=== PATIENT | male | born 1940 | race Caucasian/White ===

== ENCOUNTER → 2020-03-06 | Outpatient (CLI) | payer MEDICARE ==
--- NOTE | 2020-03-06 15:09 | XR ---
EXAMINATION TYPE: XR chest 2V DATE OF EXAM: 03/06/2020 CLINICAL HISTORY: Productive cough. History of CABG. TECHNIQUE: Frontal and lateral views of the chest are obtained. COMPARISON: None FINDINGS: Sternotomy wires and cardiac bypass graft markers consistent with history of CABG. The car diomediastinal silhouette is within normal limits for size. Pulmonary vasculature is normal. Multiple nonenlarged appearing bilateral hilar lymph nodes. Tiny round density over the right costophrenic an gle measuring 2 to 3 mm. There is no focal air space opacity, pleural effusion, or pneumothorax seen. Degenerative changes of the visualized spine. IMPRESSION: 1. No acute cardiopulmonary process. 2. Tiny 2 to 3 mm density over the right costophrenic angle may be related to granuloma, scarring, or overlying osseous/soft tissue structure. Consider repeat chest x-ray in 6 months for stability versu s resolution.
== END | disposition home or self-care (01) ==
LOC: RADXRMAIN 10:25
PROVIDERS: ATTEND Internal Medicine Geriatric Medicine
DX: R91.8 Other nonspecific abnormal finding of lung field (principal); R05 Cough
CPT/HCPCS: 71046

== ENCOUNTER → 2021-01-30 | Outpatient (CLI) | payer MEDICARE ==
--- NOTE | 2021-01-30 15:36 | XR ---
Bilateral hips HISTORY: 25.552 2 views of each hip There are dense vascular calcifications noted. Bone mineralization, joint spaces and alignment are ma intained on the right. No fracture or dislocation. The left hip shows joint space loss, subchondral geode formation and eburnation. There is mild margin al spurring. IMPRESSION: Osteoarthritis left hip.
== END | disposition home or self-care (01) ==
LOC: RADXRMAIN 11:12
PROVIDERS: ATTEND Internal Medicine Geriatric Medicine
DX: M16.12 Unilateral primary osteoarthritis, left hip (principal)
CPT/HCPCS: 73521

== ENCOUNTER 2021-08-05 12:53 | Emergency (ER) | payer MEDICARE ==
[2021-08-05 12:58] VITALS: RESP 18; TEMP 97.6
--- NOTE | 2021-08-05 13:29 | ED ---
General Adult HPI - General Chief complaint: Chest Pain Stated complaint: chest pain Time Seen by Provider: 08/05/21 13:02 Source: patient Mode of arrival: wheelchair Limitations: no limitations - History of Present Illness Initial comments: Dictation was produced using [employer] dictation software. please excuse any grammatical, word or spelling errors. Chief Complaint: 80-year-old male presents with abdominal pain History of Present Illness: Patient is a 80-year-old male. He has past medical history of heart attacks hypertension. Patient states that over the last 3-4 days he's been having right upper quadrant and right lower chest pain. States that it feels like a ache worse when he moves especially when he tries to sit up. Patient denies any nausea and one bout of diarrhea yesterday. No coughing. No fevers. No shortness of breath. He was sent here to the emergency department by primary care physician. He points to his right upper quadrant of his abdomen below the rib margin when asked where. States it does feel worse when he takes a deep breath. The ROS documented in this emergency department record has been reviewed and confirmed by me. Those systems with pertinent positive or negative responses have been documented in the HPI. All other systems are other negative and/or noncontributory. PHYSICAL EXAM: General Impression: Alert and oriented x3, not in acute distress HEENT: Normocephalic atraumatic, extra-ocular movements intact, pupils equal and reactive to light bilaterally, mucous membranes moist. Cardiovascular: Heart regular rate and rhythm Chest: Able to complete full sentences, no retractions, no tachypnea Abdomen: abdomen soft, non-tender, non-distended, no organomegaly Musculoskeletal: Pulses present and equal in all extremities, no peripheral edema Motor: no focal deficits noted Neurological: CN II-XII grossly intact, no focal motor or sensory deficits noted Skin: Intact with no visualized rashes Psych: Normal affect and mood ED course: 80-year-old male presents to the emergency department with right upper quadrant abdominal pain. Vital signs upon arrival shows blood pressure to 201/90 cumbersome vital signs within acceptable limits. Patient's pain is pleuritic and positional in nature. He is well-appearing at the bedside. His history of cholecystectomy. CBC unremarkable. Metabolic panel is negative. Troponins negative. Repeat vital signs are normal. Patient's symptoms are very atypical. Does not have any other associated features to cause concern for acute coronary syndrome. Patient be discharged. Reevaluated at bedside at 4:30 PM found to be in stable medical condition. His asymptomatic. EKG interpretation: Ventricular rate 71, normal sinus rhythm,. Interval 154, QRS 100, QTC 467. No [place] prolongation, no QTC prolongation, no ST or T-wave abelardo nges noted. No old EKG for comparison. Overall this EKG is unremarkable. - Related Data Home Medications Medication Instructions Recorded Confirmed Acetaminophen/Diphenhydramine 2 tab PO HS 08/05/21 08/05/21 [Tylenol PM 500-25mg] Amlodipine Besylate/Valsartan 1 tab PO DAILY 08/05/21 08/05/21 [Amlodipine-Valsartan 5-160 mg] Aspirin EC [Ecotrin Low Dose] 81 mg PO HS 08/05/21 08/05/21 Baclofen [Lioresal] 5 mg PO TID 08/05/21 08/05/21 Carbidopa-Levodopa 25-100 mg 0.5 tab PO DAILY 08/05/21 08/05/21 [Sinemet 25-100] Carbidopa-Levodopa 25-100 mg 1 tab PO HS 08/05/21 08/05/21 [Sinemet 25-100] Cholecalciferol [Vitamin D3 (25 50 mcg PO DAILY 08/05/21 08/05/21 Mcg = 1000 Iu)] Dicyclomine [Bentyl] 20 mg PO HS 08/05/21 08/05/21 Finasteride [Proscar] 5 mg PO DAILY 08/05/21 08/05/21 Meclizine [Antivert] 25 mg PO DAILY PRN 08/05/21 08/05/21 Meloxicam [Mobic] 7.5 mg PO BID 08/05/21 08/05/21 Metoprolol Succinate (ER) [Toprol 25 mg PO HS 08/05/21 08/05/21 Xl] Nitroglycerin Sl Tabs [Nitrostat] 0.4 mg SUBLINGUAL Q5M PRN 08/05/21 08/05/21 Pantoprazole [Protonix] 40 mg PO HS 08/05/21 08/05/21 Rosuvastatin [Crestor] 10 mg PO DAILY 12/29/21 12/29/21 Tamsulosin HCl [Flomax] 0.4 mg PO BID 08/05/21 08/05/21 Zinc 50 mg PO DAILY 08/05/21 08/05/21 Allergies Allergy/AdvReac Type Severity Reaction Status Date / Time No Known Allergies Allergy Verified 08/05/21 15:29 Review of Systems ROS Statement: Those systems with pertinent positive or pertinent negative responses have been documented in the HPI. ROS Other: All systems not noted in ROS Statement are negative. Past Medical History Past Medical History: Hypertension, Myocardial Infarction (NH) History of Any Multi-Drug Resistant Organisms: None Reported Past Surgical History: Coronary Bypass/CABG, Heart Catheterization With Stent Past Psychological History: No Psychological Hx Reported Smoking Status: Never smoker Past Alcohol Use History: None Reported Past Drug Use History: None Reported General Exam Limitations: no limitations Course Vital Signs 08/05/21 08/05/21 08/05/21 12:55 13:05 14:00 Temperature 97.6 F Pulse Rate 67 77 Pulse Rate [ 68 [employer] ] Respiratory 18 18 Rate Blood Pressure 201/90 169/77 O2 Sat by Pulse 97 Oximetry 08/05/21 15:56 Temperature Pulse Rate 61 Pulse Rate [ [employer] ] Respiratory 18 Rate Blood Pressure 153/74 O2 Sat by Pulse Oximetry Medical Decision Making - Lab Data Result diagrams: 08/05/21 13:28 08/05/21 14:58 Lab Results 08/05/21 08/05/21 08/05/21 Range/Units 13:28 14:58 14:58 WBC 5.1 (3.8-10.6) k/uL RBC 5.50 (4.30-5.90) m/uL Hgb 16.7 (13.0-17.5) gm/dL Hct 52.2 (39.0-53.0) % MCV 94.9 (80.0-100.0) fL MCH 30.3 (25.0-35.0) pg MCHC 32.0 (31.0-37.0) g/dL RDW 12.8 (11.5-15.5) % Plt Count 181 (150-450) k/uL MPV 9.1 Neutrophils % 54 % Lymphocytes % 29 % Monocytes % 7 % Eosinophils % 7 % Basophils % 1 % Neutrophils # 2.7 (1.3-7.7) k/uL Lymphocytes # 1.5 (1.0-4.8) k/uL Monocytes # 0.4 (0-1.0) k/uL Eosinophils # 0.3 (0-0.7) k/uL Basophils # 0.0 (0-0.2) k/uL Sodium 137 (137-145) mmol/L Potassium 5.1 (3.5-5.1) mmol/L Chloride 102 (98-107) mmol/L Carbon Dioxide 26 (22-30) mmol/L Anion Gap 9 mmol/L BUN 20 (9-20) mg/dL Creatinine 1.04 (0.66-1.25) mg/dL Est GFR (CKD-EPI)AfAm 78 (>60 ml/min/1.73 sqM) Est GFR (CKD-EPI)NonAf 67 (>60 ml/min/1.73 sqM) Glucose 112 H (74-99) mg/dL Calcium 9.3 (8.4-10.2) mg/dL Magnesium 2.1 (1.6-2.3) mg/dL Total Bilirubin 0.6 (0.2-1.3) mg/dL AST 34 (17-59) U/L ALT 8 (4-49) U/L Alkaline Phosphatase 75 (38-126) U/L Troponin I <0.012 (0.000-0.034) ng/mL Total Protein 7.1 (6.3-8.2) g/dL Albumin 4.3 (3.5-5.0) g/dL Lipase 55 (23-300) U/L Disposition Clinical Impression: Abdominal wall strain Disposition: HOME SELF-CARE Condition: Good Instructions (If sedation given, give patient instructions): Abdominal Pain (ED), Chest Pain (ED) Is patient prescribed a controlled substance at d/c from ED?: No Referrals: Darian Benavides MD [Primary Care Provider] - 1-2 days
[2021-08-05 13:46] LABS: Basophils % (A) 1 %; Eosinophils # (A) 0.3 k/uL (0-0.7); Eosinophils % (A) 7 %; HCT 52.2 % (39.0-53.0); HGB 16.7 gm/dL (13.0-17.5); Lymphocytes # (A) 1.5 k/uL (1.0-4.8); Lymphocytes % (A) 29 %; MCH 30.3 pg (25.0-35.0); MCV 94.9 fL (80.0-100.0); Mean Platelet Volume 9.1; Monocytes # (A) 0.4 k/uL (0-1.0); Monocytes % (A) 7 %; Neutrophils # (A) 2.7 k/uL (1.3-7.7); Neutrophils % (A) 54 %; Platelet Count 181 k/uL (150-450); RDW 12.8 % (11.5-15.5); WBC 5.1 k/uL (3.8-10.6)
--- NOTE | 2021-08-05 14:09 | XR ---
EXAMINATION TYPE: XR abdomen acute w cxr DATE OF EXAM: 08/05/2021 COMPARISON: NONE HISTORY: abdominal pain TECHNIQUE: Supine, upright, and left side down lateral decubitus views of the abdomen are obtained. FINDINGS: There is bilateral areas of infiltrate and heart size is normal. Postoperative changes. No pneumothorax. Arthropathy of the hips greater on the left. Calcification the pelvis likely vascular. Right-sided intra-abdominal calcification nonspecific. No diagnostic evidence of bowel obstruction. IMPRESSION: 1. Nonspecific abdomen with no obstruction. 2. Bilateral lower lobe infiltrate.
[2021-08-05 15:51] LABS: Albumin 4.3 g/dL (3.5-5.0); Calcium 9.3 mg/dL (8.4-10.2); Total Bilirubin 0.6 mg/dL (0.2-1.3); Total Protein 7.1 g/dL (6.3-8.2)
[2021-08-05 15:52] LABS: Magnesium 2.1 mg/dL (1.6-2.3); Potassium 5.1 mmol/L (3.5-5.1)
[2021-08-05 17:01] VITALS: BP 144/78; PULSE 57
== END 2021-08-05 17:08 | disposition home or self-care (01) ==
LOC: EC 12:53
DX: S39.011A Strain of muscle, fascia and tendon of abdomen, initial encounter (principal); I10 Essential (primary) hypertension; I25.2 Old myocardial infarction; Z79.82 Long term (current) use of aspirin; Z95.1 Presence of aortocoronary bypass graft; X58.XXXA Exposure to other specified factors, initial encounter
CPT/HCPCS: 36415; 74022; 80053; 83690; 83735; 84484; 85025; 93005; 99285

== ENCOUNTER → 2022-10-20 | Outpatient (CLI) | payer MEDICARE ==
--- NOTE | 2022-10-21 10:33 | NM ---
EXAMINATION TYPE: NM DatScan Brain SPECT DATE OF EXAM: 10/20/2022 COMPARISON: NONE HISTORY: Tremors TECHNIQUE: 10 drops of Lugol's solution was administered 1 hour prior to injection as a thyroid bloc emiliano agent. After the administration of 4.53 mCi I-123 Ioflupane DaTscan. Images obtained 3 hours p ost injection. SPECT images of the brain were acquired with axial and coronal reconstructions. FINDINGS: The axial SPECT images demonstrate normal background activity. Accounting for head tilt, t here appears to be symmetric uptake within the bilateral corpus striatum. The Z score within the striatum, caudate, anterior putamen, and posterior putamen bilaterally are wit hin normal limits. IMPRESSION: 1. Normal exam.
== END | disposition home or self-care (01) ==
LOC: RADNMMAIN 10:25
PROVIDERS: ATTEND Internal Medicine Geriatric Medicine
DX: G20 Parkinson's disease (principal)
CPT/HCPCS: 78803; A9584

== ENCOUNTER → 2023-01-13 | Outpatient (CLI) | payer MEDICARE ==
--- NOTE | 2023-01-13 14:36 | MR ---
EXAMINATION TYPE: MR brain wo/w con DATE OF EXAM: 01/13/2023 COMPARISON: No direct comparisons HISTORY: Shaking of the right hand, no reinforcing steel erector strength. TECHNIQUE: Multiplanar, multisequence images of the brain and brainstem is performed without and with IV contras t, utilizing 9.5 mL intravenous Gadavist . FINDINGS: Diffusion weighted images demonstrate no evidence of a recent infarct or other diffusion ab normality. There is no extra-axial fluid collection. Several periventricular and subcortical white m atter T2/FLAIR hyperintense foci. Largest is within the periventricular location on the right fronta l lobe measuring up to 1.4 cm (series 501, image 21). The ventricular system and cisternal spaces are normal in size and appearance. Age-appropriate cerebral volume loss. Midline structures demonstrate normal morphology. The craniocervical junction appears within normal limits. Post contrast images demonstrate no abnormal enhancement. The dural venous sinuses appear pa tent. Moderate mucosal thickening of the right frontal sinus. The remaining visualized sinuses are cl ear and the globes are intact. IMPRESSION: 1. No evidence of intracranial mass, acute/subacute infarct, or abnormal enhancement. 2. Nonspecific white matter changes, likely related to small vessel ischemic disease
== END | disposition home or self-care (01) ==
LOC: RADMRIMAIN 12:37
PROVIDERS: ATTEND Psychiatry & Neurology Neurology
DX: R90.82 White matter disease, unspecified (principal); R27.0 Ataxia, unspecified
CPT/HCPCS: 70553; A9585

== ENCOUNTER → 2023-02-03 | Outpatient (CLI) | payer MEDICARE ==
--- NOTE | 2023-02-04 08:35 | MR ---
MRI CERVICAL SPINE: CLINICAL HISTORY: Shaking of right hand, sometimes dropping things, myelopathy right finger pain and numbness. TECHNIQUE: Multiplanar, multisequence imaging of the cervical spine is performed without IV contrast. COMPARISON: None. FINDINGS: Coronal images show levoconvex scoliotic curvature centered in the lower cervical spine. Sa gittal images of the cervical spine show the craniocervical junction to appear within normal limits. The cervical and upper thoracic spinal cord is normal in course, caliber, and signal. The vertebral body heights are normal. Moderate disc space narrowing with mild to moderate anterior spurring at C4- C5 level. Moderate to severe disc space narrowing with heterogeneous Modic type II endplate changes a t C5-C6 level. Sikxqcxo-[id number]-hcghhs disc space narrowing and moderate anterior spurring at C6-C7 level. Slight subtle grade 1 anterolisthesis C7 on T1. Axial images show C2-C3 level to appear within normal limits. Axial images at C3-C4 level showed broad based posterior disc protrusion effacing anterior thecal sac and uncovertebral facet degenerative changes causing mild left and moderate to severe right-sided ne ural foraminal narrowing. Axial images at C4-C5 level shows broad-based right paracentral disc protrusion effacing anterior the kristel sac with right foraminal component causing moderate right-sided neural foraminal narrowing. Axial images at C5-C6 level show posterior spur disc complex effacing anterior thecal sac and causing mild right and [id number]-yw-caughhkh left-sided neural foraminal narrowing. Axial images at C6-C7 level shows a focal central disc protrusion effacing anterior thecal sac with a symmetric mild left-sided neural foraminal narrowing. Axial images at C7-T1 level appear within normal limits. 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
== END | disposition home or self-care (01) ==
LOC: RADMRIMAIN 15:14
PROVIDERS: ATTEND Psychiatry & Neurology Neurology
DX: M47.12 Other spondylosis with myelopathy, cervical region (principal); R53.1 Weakness; R27.9 Unspecified lack of coordination
CPT/HCPCS: 72141

== ENCOUNTER 2023-10-18 06:52 | Day surgery (SDC) | payer MEDICARE ==
[2023-10-18] MEDS ORDERED: HEPARIN SODIUM,PORCINE (1 ML) 2,500 UNIT in SODIUM CHLORIDE 0.9% 250 ML IRRIGATION PRN (07:38)
[2023-10-18] MEDS ORDERED: ASPIRIN 325 MG TAB PO STA (07:38)
[2023-10-18] MEDS ORDERED: HEPARIN SODIUM,PORCINE 10,000 UNIT in SODIUM CHLORIDE 0.9% 1,000 ML IRRIGATION PRN (07:38)
[2023-10-18] MEDS ORDERED: ALPRAZolam 0.25 MG TAB PO PRN (07:38)
[2023-10-18] MEDS ORDERED: NITROGLYCERIN SL TABS 0.4 MG TAB SUBLINGUAL PRN (07:38)
[2023-10-18] MEDS: SODIUM CHLORIDE 0.9% 1,000 ML in EMPTY BAG 1 BAG IV SCH (07:44)
[2023-10-18] MEDS: ALPRAZolam 0.5 MG TAB PO PRN (07:51)
[2023-10-18 08:09] VITALS: RESP 18; TEMP 97.8
[2023-10-18] MEDS ORDERED: HEPARIN SODIUM 1,000 UN/ML (10ML VL) ONE (09:12)
[2023-10-18] MEDS ORDERED: fentaNYL (PF) 50 MCG/ML 2 ML AMP ONE (09:13)
[2023-10-18] MEDS: fentaNYL (PF) 50 MCG/ML 2 ML AMP IVP ONE (09:30)
[2023-10-18] MEDS: LIDOCAINE 1% INJ 10MG/ML (30 ML VIAL-PF) SQ ONE (09:31)
[2023-10-18] MEDS: VERAPAMIL SYRINGE (5 MG/10 ML) INTRAARTER ONE (09:32)
[2023-10-18] MEDS: HEPARIN SODIUM 1,000 UN/ML (10ML VL) IV ONE (09:45)
[2023-10-18] MEDS: IOPAMIDOL-370 100ML BTL INJ ONE ×2 (09:55→10:03)
[2023-10-18] MEDS ORDERED: RX INFO: IV CONTRAST WAS GIVEN 1 EACH MISC MISCELLANE PRN (10:18)
[2023-10-18] MEDS ORDERED: SODIUM CHLORIDE 0.9% 1,000 ML IV SCH (10:30)
--- NOTE | 2023-10-18 10:35 | P.CARDCATH ---
Date of Procedure: 10/18/23 Description of Procedure: Cardiac Catheterization: The patient is an 82-year-old male with a known history of prior bypass and stenting who has been complaining of progressive fatigue. Had an abnormal MPI. Recommendations were made regarding cardiac catheterization, the risks and the complications were discussed with the patient who is in full understanding and agreement. Procedure Description: Patient was brought to slab inspector in fasting semi-sedated state after receiving Fentanyl and Benadryl achieiving moderate conscious sedated state. Using Xylocaine Anesthesia and modified Seldinger technique, a 6-[place]e sheath was introduced in the left radial artery . Subsequently, selective coronary angiography was performed using a 5-[place]e 4 bend Slime catheter. Multiple views of the coronary artery including hemiaxial views were obtained. Images of the saphenous vein graft to the OM were obtained with the right Slime as well images of the SAAVEDRA. The saphenous vein graft to the diagonal was cannulated using a 6 [place]e left coronary bypass catheter. The 5 [place]e pigtail catheter was used to cross the aortic valve and LVEDP was calculated. Following that, catheter and sheath were removed. Hemostasis was obtained with deployment of vascular band . There was no immediate complication. Patient was returned to room in stable condition. Of note, the patient received a total of 5000 units of intravenous heparin as well as intra-arterial verapamil. Findings: Fluoroscopy: Significant calcification of the ostium of the RCA was noted. Left main: This is a calcified vessel diffusely disease with a area of stenosis up to 70% bifurcating into left circumflex and LAD LAD: This vessel is diffusely diseased throughout its course, the proximal and mid segment have area of stenosis up to 80%. Competitive flow from the SAAVEDRA was noted in the mid LAD. A first diagonal branch was noted with diffuse intimal disease proximally Left circumflex: This vessel is totally occluded proximally with no antegrade flow RCA: This is a dominant vessel heavily calcified bifurcating distally to PDA and PLV. The proximal right coronary artery in the ostium is heavily calcified with a area of stenosis 40 to 50% the mid segment proximal to the stent has an area of stenosis of 70% diffuse intimal disease in the distal vessel was noted. The PDA and PLV are small in caliber and diffusely diseased. SAAVEDRA to the LAD the distal anastomotic site is patent the flow in the LAD is brisk there is no evidence of obstructive disease Saphenous vein graft to the OM: The proximal and distal anastomotic site are patent the flow into the OM is brisk and there is back feeding to the first OM. There is a 20 to 30% stenosis in the proximal body of the graft. Saphenous vein graft to the diagonal branch: The proximal and distal anastomotic site are patent the flow in the diagonal branch is brisk. The diagonal branch is small in caliber and diffusely diseased. Left Ventriculogram: Not performed Hemodynamics: There was no gradient across the aortic valve, LVEDP was 12-14 mmHg Conclusion: 1. Calcified coronary arteries 2. Chronically occluded left circumflex 3. 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 Diffuse disease with severe disease in the proximal and mid LAD 5. Patent SAAVEDRA to the LAD 6. Patent SVG to the OM and to the diagonal branch Recommendations: I have recommended to continue medical therapy. His stress test correlates with his diffusely disease RCA. If he has persistent symptoms then attempt of stenting of the RCA can be done. The findings and the recommendations were discussed with the patient and the family and they were in full understanding and agreement. Duration of sedation is 33 minutes.
[2023-10-18 15:22] VITALS: BP 148/67; PULSE 56
[2023-10-18] MEDS ORDERED: ASPIRIN 81 MG PO SCH (21:00)
[2023-10-19] MEDS ORDERED: amLODIPine 5 MG TAB PO SCH (09:00)
[2023-10-19] MEDS ORDERED: ATORVASTATIN 20 MG TAB PO SCH (09:00)
[2023-10-19] MEDS ORDERED: PROPRANOLOL 20 MG TAB PO SCH (09:00)
[2023-10-19] MEDS ORDERED: VALSARTAN 160 MG TAB PO SCH (09:00)
== END 2023-10-18 15:15 | disposition home or self-care (01) ==
LOC: CATHCVL 06:52
PROVIDERS: ATTEND Internal Medicine Interventional Cardiology
DX: I25.10 Atherosclerotic heart disease of native coronary artery without angina pectoris (principal); I10 Essential (primary) hypertension; E78.5 Hyperlipidemia, unspecified; Z82.49 Family history of ischemic heart disease and other diseases of the circulatory system; Z79.82 Long term (current) use of aspirin; Z79.899 Other long term (current) drug therapy
CPT/HCPCS: 93459; C1769 ×3; C1894; J2001; J3010; J1644; Q9967

== ENCOUNTER → 2023-12-15 | Outpatient (CLI) | payer MEDICARE ==
[2023-12-16 02:05] LABS: ALT 18 U/L (10-49); AST 23 U/L (14-35); Albumin 4.7 g/dL (3.8-4.9); Albumin/Globulin Ratio 1.96 Ratio (1.60-3.17); Alkaline Phosphatase 96 U/L (41-126); BUN/Creat Ratio 16.75 Ratio (12.00-20.00); Blood Urea Nitrogen 20.1 mg/dL (9.0-27.0); Calcium 9.6 mg/dL (8.7-10.3); Carbon Dioxide 26.6 mmol/L (21.6-31.8); Chloride 105 mmol/L (96-109); Globulin 2.4 g/dL (1.6-3.3); Glucose 106 mg/dL (70-110); Potassium 4.3 mmol/L (3.5-5.5); Sodium 143 mmol/L (135-145); Total Bilirubin 0.4 mg/dL (0.3-1.2); Total Protein 7.1 g/dL (6.2-8.2)
[2023-12-16 02:28] LABS: NT-Pro-B-Type Natriuretic Pept 374 pg/mL (0-450)
== END | disposition home or self-care (01) ==
LOC: LABWHC1 13:39
PROVIDERS: ATTEND Internal Medicine Interventional Cardiology
DX: I25.5 Ischemic cardiomyopathy (principal)
CPT/HCPCS: 36415; 80053; 83880

== ENCOUNTER 2024-02-21 05:04 | Observation (INO) | payer MEDICARE ==
[2024-02-21 05:53] LABS: ALT 19 U/L (4-49); African American GFR (CKD) 83 (>60 ml/min/1.73 sqM); Albumin 4.4 g/dL (3.5-5.0); Anion Gap 10 mmol/L; Blood Urea Nitrogen 24 mg/dL (9-20); Calcium 8.8 mg/dL (8.4-10.2); Carbon Dioxide 20 mmol/L (22-30); Chloride 111 mmol/L (98-107); Glucose 106 mg/dL (74-99); Non-African American GFR(CKD) 72 (>60 ml/min/1.73 sqM); Sodium 141 mmol/L (137-145); Total Bilirubin 0.9 mg/dL (0.2-1.3); Total Protein 6.8 g/dL (6.3-8.2)
[2024-02-21] MEDS: SODIUM CHLORIDE 0.9% 500 ML 500 ML IV STA (05:56)
[2024-02-21] MEDS: NITROGLYCERIN OINT 1 INCH/GM PACKET TOPICAL STA (05:57)
[2024-02-21 06:01] LABS: AST 32 U/L (17-59); Alkaline Phosphatase 74 U/L (38-126); Magnesium 1.9 mg/dL (1.6-2.3); Potassium 4.6 mmol/L (3.5-5.1)
[2024-02-21 06:02] LABS: NT-Pro-B-Type Natriuretic Pept 421 pg/mL
[2024-02-21 06:13] LABS: Basophils % (A) 0 %; Eosinophils # (A) 0.1 k/uL (0-0.7); Eosinophils % (A) 3 %; HCT 48.3 % (39.0-53.0); HGB 15.5 gm/dL (13.0-17.5); Lymphocytes # (A) 0.3 k/uL (1.0-4.8); Lymphocytes % (A) 6 %; MCH 30.8 pg (25.0-35.0); Mean Platelet Volume 8.4; Monocytes # (A) 0.1 k/uL (0-1.0); Monocytes % (A) 2 %; Neutrophils # (A) 3.9 k/uL (1.3-7.7); Neutrophils % (A) 89 %; Platelet Count 135 k/uL (150-450); RBC 5.03 m/uL (4.30-5.90); RDW 13.1 % (11.5-15.5); WBC 4.4 k/uL (3.8-10.6)
[2024-02-21] MEDS ORDERED: NALOXONE 0.4 MG/ML 1 ML VIAL IV PRN (06:40)
--- NOTE | 2024-02-21 06:42 | ED ---
General Adult HPI - General Chief complaint: Chest Pain Stated complaint: Chest Pain Time Seen by Provider: 02/21/24 05:20 Source: patient, EMS, RN notes reviewed, old records reviewed Mode of arrival: EMS - History of Present Illness Initial comments: Patient is a 83-year-old male who presents emergency department complaining of chest pain. Chest pain started at approximately 3-330 this morning and woke him from sleep. Describes his pain over the left side of his chest with some left arm involvement. Denies any diaphoresis, nausea, vomiting. Denies shortness of breath. States he took 325 mg of aspirin as well as 1 or 2 nitro tablets at home which improved pain from a 5 out of 10 to approximately 1 out of 10 which is where he currently stands. Has no other acute complaints. Presents for further evaluation at this time. - Related Data Home Medications Medication Instructions Recorded Confirmed Acetaminophen/Diphenhydramine 2 tab PO HS 08/05/21 10/18/23 [Tylenol PM 500-25mg] Amlodipine Besylate/Valsartan 1 tab PO DAILY 08/05/21 10/18/23 [Amlodipine-Valsartan 5-160 mg] Aspirin EC [Ecotrin Low Dose] 81 mg PO HS 08/05/21 10/18/23 Baclofen [Lioresal] 10 mg PO BID 08/05/21 10/18/23 Cholecalciferol [Vitamin D3 (25 50 mcg PO DAILY 08/05/21 10/18/23 Mcg = 1000 Iu)] Dicyclomine [Bentyl] 20 mg PO BID 08/05/21 10/18/23 Finasteride [Proscar] 5 mg PO DAILY 08/05/21 10/18/23 Meloxicam [Mobic] 7.5 mg PO BID 08/05/21 10/18/23 Nitroglycerin Sl Tabs [Nitrostat] 0.4 mg SUBLINGUAL Q5M PRN 08/05/21 10/18/23 Pantoprazole [Protonix] 40 mg PO HS 08/05/21 10/18/23 Rosuvastatin [Crestor] 10 mg PO DAILY 08/05/21 10/18/23 Tamsulosin HCl [Flomax] 0.4 mg PO BID 08/05/21 10/18/23 Zinc 50 mg PO DAILY 08/05/21 10/18/23 DULoxetine HCL [Cymbalta] 20 mg PO HS 10/12/23 10/18/23 Propranolol HCl [Inderal] 60 mg PO DAILY 10/12/23 10/18/23 Allergies Allergy/AdvReac Type Severity Reaction Status Date / Time No Known Allergies Allergy Verified 10/18/23 07:38 Review of Systems ROS Statement: Those systems with pertinent positive or pertinent negative responses have been documented in the HPI. Review of Systems: CONST: Denies fever EYES: Denies blurry vision ENT: Denies nasal congestion C/V: Endorses chest pain RESP: Denies shortness of breath GI: Denies abdominal pain : Denies dysuria SKIN: Denies rash. MSK: Denies joint pain. NEURO: Denies headache ROS Other: All systems not noted in ROS Statement are negative. Past Medical History Past Medical History: GERD/Reflux, Hyperlipidemia, Hypertension, Myocardial Infarction ([place]), Prostate Disorder Last Myocardial Infarction Date:: 2006, History of Any Multi-Drug Resistant Organisms: None Reported Past Surgical History: Cholecystectomy, Coronary Bypass/CABG, Heart Catheterization With Stent Additional Past Surgical History / Comment(s): 2009 cabg 3x vessel Past Anesthesia/Blood Transfusion Reactions: No Reported Reaction Date of Last Stent Placement:: 2015 Past Psychological History: Anxiety Smoking Status: Never smoker - Past Family History Brother(s) Family Medical History: Cancer Additional Family Medical History / Comment(s): leukemia, lung General Exam - General Exam Comments Initial Comments: General: Appears in no acute distress. HEAD: Normal with no signs of head trauma. EYES: PERRLA, EOMI, conjunctiva normal, no discharge. ENT: Hearing grossly intact, normal oropharynx. RESPIRATORY: Clear breath sounds bilaterally. No wheezes, rales, or rhonchi. C/V: Regular rate and rhythm. S1 and S2 auscultated, no edema, peripheral pulses 2+ and intact throughout ABD: Abd is soft, nontender, nondistended EXT: Normal range of motion, no obvious deformity SKIN: No rashes or lesions observed on exposed skin. NEURO: Alert and oriented x 4. Cranial nerves II-XII intact. No focal sensory or strength deficits. Course Vital Signs 02/21/24 02/21/24 05:09 05:57 Temperature 98.2 F Pulse Rate 88 75 Respiratory 20 17 Rate Blood Pressure 167/82 151/82 O2 Sat by Pulse 95 95 Oximetry Medical Decision Making - Medical Decision Making Was pt. sent in by a medical professional or institution (, PINKY, TOOL MAINTENANCE TECHNICIAN, urgent care, hospital, or assisted...) When possible be specific @ -No Did you speak to anyone other than the patient for history (EMS, parent, family, police, friend...)? What history was obtained from this source @ -No Did you review nursing and triage notes (agree or disagree)? Why? @ -I reviewed and agree with nursing and triage notes Were old charts reviewed (outside hosp., previous admission, EMS record, old EKG, old radiological studies, urgent care reports/EKG's, assisted records)? Report findings @ -Old charts reviewed including prior EKGs. Compared with EKG from July 2021 with no obvious significant change. Differential Diagnosis (chest pain, altered mental status, abdominal pain women, abdominal pain men, vaginal bleeding, weakness, fever, dyspnea, syncope, headache, dizziness, GI bleed, back pain, seizure, CVA, palpatations, mental health, musculoskeletal)? @ -Differential Chest Pain: Stable Angina, Unstable Angina, STEMI, NSTEMI Aortic Dissection, Pneumothorax, Musculoskeletal, Esophageal Spasm GERD, Cholecystitis, Pancreatitis, Zoster, this is not meant to be an all-inclusive list. EKG interpreted by me (3pts min.). @ -As above X-rays interpreted by me (1pt min.). @ -Chest x-ray reveals no obvious acute cardiopulmonary process. CT interpreted by me (1pt min.). @ -None done U/S interpreted by me (1pt. min.). @ -None done What testing was considered but not performed or refused? (CT, X-rays, U/S, labs)? Why? @ -None What meds were considered but not given or refused? Why? @ -Considered administering 324 mg of aspirin however patient already took aspirin 325 mg prior to arrival. Did you discuss the management of the patient with other professionals (professionals i.e. PINKY Umanzor, TOOL MAINTENANCE TECHNICIAN, lab, RT, psych nurse, social worker health services, saddle stitching machine operator, teacher, loan officer, registered nurse hh case manager)? Give summary @ -Discussed with Dr. Benavides who accepted the admission. Was smoking cessation discussed for >3mins.? @ -No Was critical care preformed (if so, how long)? @ -No Were there social determinants of health that impacted care today? How? (Homelessness, low income, unemployed, alcoholism, drug addiction, transportation, low edu. Level, literacy, decrease access to med. care, fdc, rehab)? @ -No Was there de-escalation of care discussed even if they declined (Discuss DNR or withdrawal of care, Hospice)? DNR status @ -No What co-morbidities impacted this encounter? (DM, HTN, Smoking, COPD, CAD, Cancer, CVA, ARF, Chemo, Hep., AIDS, mental health diagnosis, sleep apnea, morbid obesity)? @ -CABG, CAD Was patient admitted / discharged? Hospital course, mention meds given and route, prescriptions, significant lab abnormalities, going to OR and other pertinent info. @ -Based on patient's presentation and physical exam, presents emergency department complaining of chest pain. Has significant cardiac history. We will obtain cardiac workup. Patient in agreement this plan. Vital signs within acceptable limits. He already took aspirin. Pain is currently 1 out of 10 and Nitropaste will be applied. Patient was in agreement this plan. Vital signs are within acceptable limits. Patient's laboratory studies are remarkable for an undetectable troponin. BNP within normal limits. Remainder the labs unremarkable. EKG shows no signs of acute ischemia. Chest x-ray shows no obvious acute findings. On reevaluation, no change in patient's clinical status. I would recommend observation admission for cardiology evaluation and trending troponin. Echo will be ordered. Patient was in agreement this plan. I spoke with the admitting physician, Dr. Benavides who accepted the admission. Undiagnosed new problem with uncertain prognosis? @ -No Drug Therapy requiring intensive monitoring for toxicity (Heparin, Nitro, Insulin, Cardizem)? @ -No Were any procedures done? @ -No Diagnosis/symptom? @ -Chest pain Acute, or Chronic, or Acute on Chronic? @ -Acute Uncomplicated (without systemic symptoms) or Complicated (systemic symptoms)? @ -Complicated Side effects of treatment? @ -No Exacerbation, Progression, or Severe Exacerbation? @ -No Poses a threat to life or bodily function? How? (Chest pain, [place], [place], pneumonia, PE, COPD, DKA, ARF, appy, cholecystitis, CVA, Diverticulitis, Homicidal, Suicidal, threat to staff... and all critical care pts) @ -Potentially, yes - Lab Data Result diagrams: 02/21/24 05:21 02/21/24 05:21 Lab Results 02/21/24 02/21/24 02/21/24 Range/Units 05:21 05:21 05:21 WBC 4.4 (3.8-10.6) k/uL RBC 5.03 (4.30-5.90) m/uL Hgb 15.5 (13.0-17.5) gm/dL Hct 48.3 (39.0-53.0) % MCV 96.0 (80.0-100.0) fL MCH 30.8 (25.0-35.0) pg MCHC 32.0 (31.0-37.0) g/dL RDW 13.1 (11.5-15.5) % Plt Count 135 L (150-450) k/uL MPV 8.4 Neutrophils % 89 % Lymphocytes % 6 % Monocytes % 2 % Eosinophils % 3 % Basophils % 0 % Neutrophils # 3.9 (1.3-7.7) k/uL Lymphocytes # 0.3 L (1.0-4.8) k/uL Monocytes # 0.1 (0-1.0) k/uL Eosinophils # 0.1 (0-0.7) k/uL Basophils # 0.0 (0-0.2) k/uL Sodium 141 (137-145) mmol/L Potassium 4.6 (3.5-5.1) mmol/L Chloride 111 H (98-107) mmol/L Carbon Dioxide 20 L (22-30) mmol/L Anion Gap 10 mmol/L BUN 24 H (9-20) mg/dL Creatinine 0.97 (0.66-1.25) mg/dL Est GFR (CKD-EPI)AfAm 83 (>60 ml/min/1.73 sqM) Est GFR (CKD-EPI)NonAf 72 (>60 ml/min/1.73 sqM) Glucose 106 H (74-99) mg/dL Calcium 8.8 (8.4-10.2) mg/dL Magnesium 1.9 (1.6-2.3) mg/dL Total Bilirubin 0.9 (0.2-1.3) mg/dL AST 32 (17-59) U/L ALT 19 (4-49) U/L Alkaline Phosphatase 74 (38-126) U/L Troponin I <0.012 (0.000-0.034) ng/mL NT-Pro-B Natriuret Pep 421 pg/mL Total Protein 6.8 (6.3-8.2) g/dL Albumin 4.4 (3.5-5.0) g/dL - EKG Data -: EKG Interpreted by Me EKG Comments: 12-lead Electrocardiogram Interpretation Note EKG was reviewed and interpreted by myself. 12-lead ECG performed at 0520 is interpreted by me as revealing normal sinus rhythm at a rate of 74 beats per minute. Left axis deviation. FL interval is 176 ms, QRS duration is 105 ms, QTc is 420 ms.. There were no ST or T wave abnormalities to suggest myocardial ischemia or injury. R wave progression across the precordium was delayed. By my interpretation this EKG is non-diagnostic for acute ischemia. Disposition Clinical Impression: Chest pain Disposition: ADMITTED IP TO THIS [facility] Condition: Stable Referrals: Darian Benavides MD [Primary Care Provider] - 1-2 days Time of Disposition: 06:42
[2024-02-21 06:47] LABS: INR 0.9 (<1.2); Prothrombin Time 10.4 sec (10.0-12.5)
--- NOTE | 2024-02-21 06:55 | XR ---
EXAMINATION TYPE: XR chest 2V DATE OF EXAM: 02/21/2024 COMPARISON: 03/06/2020 INDICATION: Chest pain TECHNIQUE: Frontal and lateral views of the chest are obtained. FINDINGS: The heart size is normal. The pulmonary vasculature is normal. The lungs are clear. Sternotomy wires are in the midline. IMPRESSION: 1. No acute pulmonary process.
[2024-02-21 07:18] LABS: Partial Thromboplastin Time 19.4 sec (22.0-30.0)
--- NOTE | 2024-02-21 10:35 | P.CRDCN ---
History of Present Illness History of present illness: HISTORY OF PRESENTING ILLNESS This is a pleasant 83-year-old with past medical history significant for hypertension, hyperlipidemia, CAD status post CABG in 2009 as well as stenting in 2017. Patient follows in the office with Dr. Barron. He also follows with a apparel manager in [place] and at some point had been told he may need a pacemaker in the future. He had recent heart catheterization from October 2023 which showed SOCIALLY RESPONSIBLE INVESTMENT ADVISER the circumflex, severe stenosis of the ostium of the RCA not amenable to stenting with diffuse disease of the LAD and patent SAAVEDRA to LAD and SVG to OM and to diagonal branch. Therefore medical therapy was recommended. Overall he has been doing fairly well with medical therapy however had an episode of chest pain this morning. patient states at proximally 3:30 in the morning he started having a vague feeling of not being well. He has a difficult time explaining however was shaking, having a hard time breathing and last approximately 20 minutes and eventually woke up his . His therefore called EMS. He also describes some mild chest discomfort. EMS EKG 2 was read out as atrial fibrillation however at times can clearly see P waves and appears intermittent PACs. He denies any history of atrial fibrillation. He states his symptoms had started improved by the time he got to the EMS. Currently he states he feels well and denies any chest pain or pressure. Troponin normal 2 with EKG showing normal sinus rhythm with no significant ST or T wave abnormalities. Denies any recent fevers or chills. He states he has had a few of these episodes in the past however not for a few months and normally always occurs in the morning with fadia ing episodes. blood pressure was somewhat elevated in the 160s over 90s on presentation however has gone back down to his normal well-controlled 120s to 130s. REVIEW OF SYSTEMS At the time of my exam: CONSTITUTIONAL: Denies fever or chills. CARDIOVASCULAR: +chest pain, +shortness of breath, no orthopnea, PND or palpitations. RESPIRATORY: Denies cough. GASTROINTESTINAL: Denies abdominal pain, diarrhea, constipation, nausea or vomiting. MUSCULOSKELETAL: Denies myalgias. NEUROLOGIC: Denies numbness, tingling or weakness. ENDOCRINE: Denies fatigue, weight change, polydipsia or polyurina. GENITOURINARY: Denies burning, hematuria or urgency with micturation. HEMATOLOGIC: Denies history of anemia or bleeding. PHYSICAL EXAMINATION Vital signs reviewed. CONSTITUTIONAL: No apparent distress. HEENT: Head is normocephalic. Pupils are equal, round. Sclerae anicteric. Mucous membranes of the mouth are moist. No JVD. No carotid bruit. CHEST EXAMINATION: Lungs are clear to auscultation. No chest wall tenderness is noted on palpation or with deep breathing. HEART EXAMINATION: Regular rate and rhythm. S1, S2 heard. No murmurs, gallops or rub. ABDOMEN: Soft, nontender. Positive bowel sounds. EXTREMITIES: 2+ peripheral pulses, no lower extremity edema and no calf tenderness. NEUROLOGIC EXAMINATION: Patient is awake, alert and oriented x3. ASSESSMENT atypical chest pain, troponins normal, acute coronary syndrome ruled out Vague episodes of shaking, not feeling well, shortness breath and chest pain. Quickly cardiac, does not appear clearly ischemic, may be arrhythmogenic versus anxiety or other. CAD with prior history of CABG Hypertension Hyperlipidemia PLAN patient does have significant CAD however symptoms are not typical of angina and EKG and troponins unrevealing. There is one the EKG from EMS read out as atrial fibrillation however appears to be sinus rhythm with PACs. No clear-cut atrial fibrillation. Some concern of possible arrhythmia causing some of the symptoms however and we will set patient up for 2 week event monitor. Check repeat 2-D echo and if unrevealing patient may be discharged home from a cardiology standpoint with outpatient follow-up. Past Medical History Past Medical History: GERD/Reflux, Hyperlipidemia, Hypertension, Myocardial Infarction ([place]), Prostate Disorder Last Myocardial Infarction Date:: 2006, History of Any Multi-Drug Resistant Organisms: None Reported Past Surgical History: Cholecystectomy, Coronary Bypass/CABG, Heart Catheterization With Stent Additional Past Surgical History / Comment(s): 2008 cabg 3x vessel Past Anesthesia/Blood Transfusion Reactions: No Reported Reaction Date of Last Stent Placement:: 2015 Past Psychological History: Anxiety Smoking Status: Never smoker - Past Family History Brother(s) Family Medical History: Cancer Additional Family Medical History / Comment(s): leukemia, lung Medications and Allergies Home Medications Medication Instructions Recorded Confirmed Type Acetaminophen/Diphenhydramine 2 tab PO HS 08/05/21 02/21/24 History [Tylenol PM 500-25mg] Amlodipine Besylate/Valsartan 1 tab PO HS 08/05/21 02/21/24 History [Amlodipine-Valsartan 5-160 mg] Aspirin EC [Ecotrin Low Dose] 81 mg PO HS 08/05/21 02/21/24 History Baclofen [Lioresal] 10 mg PO BID 08/05/21 02/21/24 History Dicyclomine [Bentyl] 10 mg PO BID 08/05/21 02/21/24 History Finasteride [Proscar] 5 mg PO DAILY 08/05/21 02/21/24 History Meloxicam [Mobic] 7.5 mg PO BID 08/05/21 02/21/24 History Nitroglycerin Sl Tabs [Nitrostat] 0.4 mg SUBLINGUAL Q5M PRN 08/05/21 02/21/24 History Pantoprazole [Protonix] 40 mg PO HS 08/05/21 02/21/24 History Rosuvastatin [Crestor] 10 mg PO DAILY 08/05/21 02/21/24 History Tamsulosin HCl [Flomax] 0.4 mg PO BID 08/05/21 02/21/24 History DULoxetine HCL [Cymbalta] 20 mg PO HS 10/12/23 02/21/24 History Aspirin EC [Ecotrin] 325 mg PO ONCE 02/21/24 02/21/24 History Empagliflozin [Jardiance] 10 mg PO DAILY 02/21/24 02/21/24 History Isosorbide Mononitrate ER [Imdur] 30 mg PO DAILY 02/21/24 02/21/24 History Propranolol LA [Inderal LA] 60 mg PO Q2D 02/21/24 02/21/24 History Zinc W/ Vit D 1 tab PO DAILY 02/21/24 02/21/24 History Allergies Allergy/AdvReac Type Severity Reaction Status Date / Time No Known Allergies Allergy Verified 02/21/24 09:44 Physical Exam Vitals: Vital Signs Temp Pulse Resp BP Pulse Ox 02/21/24 05:57 75 17 151/82 95 02/21/24 05:09 98.2 F 88 20 167/82 95 Intake and Output 02/20/24 02/21/24 02/21/24 22:59 06:59 14:59 Other: Weight 130.635 kg Results 02/21/24 05:21 02/21/24 05:21 Cardiac Enzymes 02/21/24 02/21/24 02/21/24 Range/Units 05:21 05:21 08:05 AST 32 (17-59) U/L Troponin I <0.012 <0.012 (0.000-0.034) ng/mL Coagulation 02/21/24 Range/Units 05:21 PT 10.4 (10.0-12.5) sec APTT 19.4 L (22.0-30.0) sec CBC 02/21/24 Range/Units 05:21 WBC 4.4 (3.8-10.6) k/uL RBC 5.03 (4.30-5.90) m/uL Hgb 15.5 (13.0-17.5) gm/dL Hct 48.3 (39.0-53.0) % Plt Count 135 L (150-450) k/uL Comprehensive Metabolic Panel 02/21/24 Range/Units 05:21 Sodium 141 (137-145) mmol/L Potassium 4.6 (3.5-5.1) mmol/L Chloride 111 H (98-107) mmol/L Carbon Dioxide 20 L (22-30) mmol/L BUN 24 H (9-20) mg/dL Creatinine 0.97 (0.66-1.25) mg/dL Glucose 106 H (74-99) mg/dL Calcium 8.8 (8.4-10.2) mg/dL AST 32 (17-59) U/L ALT 19 (4-49) U/L Alkaline Phosphatase 74 (38-126) U/L Total Protein 6.8 (6.3-8.2) g/dL Albumin 4.4 (3.5-5.0) g/dL Current Medications Generic Name Dose Route Start Last Admin Trade Name Freq PRN Reason Stop Dose Admin Heparin Sodium (Porcine) 5,000 unit 02/21/24 09:00 Heparin Sodium,Porcine 5,000 Unit/Ml 1 Ml Vial SQ Q12HR CONSUELO Naloxone HCl 0.2 mg 02/21/24 06:40 Naloxone 0.4 Mg/Ml 1 Ml Vial IV Q2M PRN Opioid Reversal Intake and Output 02/20/24 02/21/24 02/21/24 22:59 06:59 14:59 Other: Weight 130.635 kg 02/21/24 05:21 02/21/24 05:21
[2024-02-21] MEDS: HEPARIN SODIUM,PORCINE 5,000 UNIT/ML 1 ML VIAL SQ SCH (10:40)
--- NOTE | 2024-02-21 17:47 | P.HPIM ---
History of Present Illness H&P Date: 02/21/24 HISTORY OF PRESENT ILLNESS: 83-year-old with active medical history of atherosclerotic heart disease post CABG and multiple coronary artery disease involvement last heart catheter was done In October 18, 2023 with finding consistent with multi vessel involvement did not require any angioplasty or any intervention. Patient also has been having significant problem with tremor with? Parkinsonism never diagnosed with Parkinson disease, chronic history of lower back pain, history of hypertension, hyperlipidemia, hyperglycemia with A1c below 6, history of chronic osteoarthritis, BPH, fluctuation with blood pressure but has been better controlled lately. Patient woke up around 3:00 after midnight with significant pressure pain and discomfort in the midsternal area become quite a bit intense radiate toward both side have significant shortness of breath with it associated with mild nausea palpitation and cold sweats. His ended up giving him aspirin and nitroglycerin call 911 by the time EMS got to the scene gave him little bit more nitroglycerin and transported him to the hospital where was seen and evaluated the emergency department at [facility] CK with troponin was negative BNP was 421 his EKG showed Q waves in the inferior wall area which is an old with no change from before, chest x-ray did not show any major abnormality. Patient was diagnosed with angina his chest pain and symptom improved on nitroglycerin no further chest pain since. Patient be hospitalized will be seen cardiology review his last heart catheter and see if required to have any intervention. REVIEW OF SYSTEMS: CONSTITUTIONAL: Mildly overweight no acute respiratory distress EYES: No icterus sclerae, no conjunctivitis. EARS, NOSE, MOUTH, THROAT, and FACE: No sore throat, lymphadenopathy, carotid bruits or deformity. RESPIRATORY: No SOB cough or wheezes. CARDIOVASCULAR: Positive chest pain and angina with PND and orthopnea. GASTROINTESTINAL: Mild increased heartburn indigestion with nausea change in bowel habits no vomiting. GENITOURINARY: Negative for Hematuria or UTI, no kidney stones. BPH symptoms. INTEGUMENT/BREAST: Negative for any muscular injury with mild osteoarthritis.. HEMATOLOGIC/LYMPHATIC: Negative for bleed or purpura. MUSCULOSKELTAL: Negative for generalized myalgia and arthralgia. NEURLOGICAL: No LOC, Sz or syncope, blurred vision dizziness or abnormality. Mild tremor and abnormal balance and gait. BEHAVIORAL/PSYCH: Negative. ENDOCRINE: Negative. PHYSICAL EXAMINATION: General Appearance: Obese no acute respiratory distress. Neck HEENT: Supple, no lymphadenopathy, no thyroid enlargement, no carotid bruits. Lungs: Clear to auscultation without crackles or wheezes no rhonchi, no deformity. Chest Wall: Decreased expansion with deep inspiration no tenderness and no def ormity was found on exam, no costochondral pain or discomfort. Heart: Regular rate and rhythm, S1, S2 normal, no murmur, rub or gallop. Back: Symmetric, no curvature, ROM normal, no CVA tenderness. Abdomen: Soft, non-tender, bowel sounds active all four quadrants, no masses, no organomegaly. Extremities: Extremities normal, atraumatic, no cyanosis or edema. Pulses: 2+ and symmetric. Skin: Skin color, texture, tugor normal, no rashes or lesions. Neurologic: Alert oriented x3 cranial nerves II through XII intact, no motor deficit, no abnormal balance or gait. ASSESSMENT AND PLAN: _Atypical chest pain and angina: Patient was admitted to the hospital,Continue current management no need for anticoagulation at this point nitro was giving cardiology consultation be done CK troponin times 3 repeat EKG and whether to do an echocardiogram to measure ejection fraction and see for any wall motion abnormality will be a good idea. _Coronary artery disease post CABG with multiple blockage has been on medical management. _Hypertension: Continue Inderal LA 60 mg, amlodipine/losartan 5/160 mg daily. _Hyperlipidemia: Remain on rosuvastatin 10 mg a day noticed complication or side effect _BPH: Still on Flomax and finasteride no complication no obstruction. _Severe GERD: Remain on pantoprazole 40 mg daily. _Hyperglycemia with type 2 diabetes has been on Jardiance 10 mg a day A1c has been around 6.0. _Essential tremor: No sign of parkinsonism still on Inderal LA 60 mg a day. _GI prophylaxis: Still on pantoprazole. _DVT prophylaxis: Knee-high ROXIE hose and early mobilization. CODE STATUS: Full code. Admit patient to the hospital for 1-2 night stay. Past Medical History Past Medical History: GERD/Reflux, Hyperlipidemia, Hypertension, Myocardial Infarction (RI), Prostate Disorder Last Myocardial Infarction Date:: 2006, History of Any Multi-Drug Resistant Organisms: None Reported Past Surgical History: Cholecystectomy, Coronary Bypass/CABG, Heart Catheterization With Stent Additional Past Surgical History / Comment(s): 2009 cabg 3x vessel Past Anesthesia/Blood Transfusion Reactions: No Reported Reaction Date of Last Stent Placement:: 2015 Past Psychological History: Anxiety Smoking Status: Never smoker - Past Family History Brother(s) Family Medical History: Cancer Additional Family Medical History / Comment(s): leukemia, lung Medications and Allergies Home Medications Medication Instructions Recorded Confirmed Type Acetaminophen/Diphenhydramine 2 tab PO HS 08/05/21 02/21/24 History [Tylenol PM 500-25mg] Amlodipine Besylate/Valsartan 1 tab PO HS 08/05/21 02/21/24 History [Amlodipine-Valsartan 5-160 mg] Aspirin EC [Ecotrin Low Dose] 81 mg PO HS 08/05/21 02/21/24 History Baclofen [Lioresal] 10 mg PO BID 08/05/21 02/21/24 History Dicyclomine [Bentyl] 10 mg PO BID 08/05/21 02/21/24 History Finasteride [Proscar] 5 mg PO DAILY 08/05/21 02/21/24 History Meloxicam [Mobic] 7.5 mg PO BID 08/05/21 02/21/24 History Nitroglycerin Sl Tabs [Nitrostat] 0.4 mg SUBLINGUAL Q5M PRN 08/05/21 02/21/24 History Pantoprazole [Protonix] 40 mg PO HS 08/05/21 02/21/24 History Rosuvastatin [Crestor] 10 mg PO DAILY 08/05/21 02/21/24 History Tamsulosin HCl [Flomax] 0.4 mg PO BID 08/05/21 02/21/24 History DULoxetine HCL [Cymbalta] 20 mg PO HS 10/12/23 02/21/24 History Aspirin EC [Ecotrin] 325 mg PO ONCE 02/21/24 02/21/24 History Empagliflozin [Jardiance] 10 mg PO DAILY 02/21/24 02/21/24 History Isosorbide Mononitrate ER [Imdur] 30 mg PO DAILY 02/21/24 02/21/24 History Propranolol LA [Inderal LA] 60 mg PO Q2D 02/21/24 02/21/24 History Zinc W/ Vit D 1 tab PO DAILY 02/21/24 02/21/24 History Allergies Allergy/AdvReac Type Severity Reaction Status Date / Time No Known Allergies Allergy Verified 02/21/24 09:44 Physical Exam Vitals: Vital Signs Temp Pulse Resp BP Pulse Ox 02/21/24 10:30 100.0 F H 77 20 129/83 93 L 02/21/24 05:57 75 17 151/82 95 02/21/24 05:09 98.2 F 88 20 167/82 95 Intake and Output 02/20/24 02/21/24 02/21/24 22:59 06:59 14:59 Other: Weight 130.635 kg Results CBC & Chem 7: 02/21/24 05:21 02/21/24 05:21 Labs: Abnormal Lab Results - Last 24 Hours (Table) 02/21/24 02/21/24 02/21/24 Range/Units 05:21 05:21 05:21 Plt Count 135 L (150-450) k/uL Lymphocytes # 0.3 L (1.0-4.8) k/uL APTT 19.4 L (22.0-30.0) sec Chloride 111 H (98-107) mmol/L Carbon Dioxide 20 L (22-30) mmol/L BUN 24 H (9-20) mg/dL Glucose 106 H (74-99) mg/dL
[2024-02-22] MEDS ORDERED: NITROGLYCERIN SL TABS 0.4 MG TAB SUBLINGUAL PRN (08:28)
[2024-02-22] MEDS: ATORVASTATIN 20 MG TAB PO SCH (09:35)
[2024-02-22] MEDS: ISOSORBIDE MONONITRATE ER 30 MG TAB.ER.24H PO SCH (09:35)
[2024-02-22] MEDS: DAPAGLIFLOZIN PROPANEDIOL 5 MG TABLET PO SCH (09:35)
[2024-02-22] MEDS: DICYCLOMINE 10 MG CAP PO SCH (09:35)
[2024-02-22] MEDS: MELOXICAM 7.5 MG TAB PO SCH (09:35)
[2024-02-22] MEDS: FINASTERIDE 5 MG TAB PO SCH (09:35)
[2024-02-22] MEDS: BACLOFEN 10 MG TAB PO SCH (09:35)
[2024-02-22] MEDS: TAMSULOSIN 0.4 MG CAP.ER.24H PO SCH (09:36)
[2024-02-22] MEDS: RANOLAZINE 500 MG TAB.ER.12H PO SCH (09:36)
[2024-02-22 10:50] LABS: Basophils # (A) 0.03 X 10*3/uL (0.00-0.10); Basophils % (A) 0.4 %; Eosinophils # (A) 0.13 X 10*3/uL (0.04-0.35); Eosinophils % (A) 1.9 %; HCT 45.6 % (39.6-50.0); HGB 14.9 g/dL (13.0-17.0); Lymphocytes # (A) 0.48 X 10*3/uL (0.90-5.00); MCH 30.5 pg (27.0-32.0); MCHC 32.7 g/dL (32.0-37.0); MCV 93.3 FL (80.0-97.0); Mean Platelet Volume 10.8 FL (9.5-12.2); Monocytes # (A) 0.54 X 10*3/uL (0.20-1.00); Monocytes % (A) 7.9 %; NRBC Per 100 WBC 0 X 10*3/uL (0.00-0.01); Neutrophils # (A) 5.64 X 10*3/uL (1.80-7.70); Neutrophils % (A) 82.5 %; Platelet Count 122 X 10*3/uL (140-440); RBC 4.89 X 10*6/uL (4.40-5.60); RDW 13.3 % (11.5-14.5); WBC 6.84 X 10*3/uL (4.50-10.00)
[2024-02-22 11:38] LABS: ALT 28 U/L (10-49); AST 31 U/L (14-35); Albumin 4.3 g/dL (3.8-4.9); Albumin/Globulin Ratio 2.05 Ratio (1.60-3.17); Alkaline Phosphatase 102 U/L (41-126); BUN/Creat Ratio 14.36 Ratio (12.00-20.00); Blood Urea Nitrogen 15.8 mg/dL (9.0-27.0); Calcium 8.9 mg/dL (8.7-10.3); Carbon Dioxide 24.3 mmol/L (21.6-31.8); Chloride 107 mmol/L (96-109); Globulin 2.1 g/dL (1.6-3.3); Glucose 118 mg/dL (70-110); Sodium 142 mmol/L (135-145); Total Bilirubin 0.6 mg/dL (0.3-1.2); Total Protein 6.4 g/dL (6.2-8.2)
--- NOTE | 2024-02-22 12:16 | P.PN ---
Subjective HISTORY OF PRESENT ILLNESS: This is a pleasant 83-year-old with past medical history significant for hypertension, hyperlipidemia, CAD status post CABG in 2009 as well as stenting in 2017. Patient follows in the office with Dr. Barron. He also follows with a integration architect in [place] and at some point had been told he may need a pacemaker in the future. He had recent heart catheterization from October 2023 which showed LAWN MOWER the circumflex, severe stenosis of the ostium of the RCA not amenable to stenting with diffuse disease of the LAD and patent SAAVEDRA to LAD and SVG to OM and to diagonal branch. Therefore medical therapy was recommended. Overall he has been doing fairly well with medical therapy however had an episode of chest pain this morning. Patient states at proximally 3:30 in the morning he started having a vague feeling of not being well. He has a difficult time explaining however was shaking, having a hard time breathing and last approximately 20 minutes and eventually woke up his . His therefore called EMS. He also describes some mild chest discomfort. EMS EKG 2 was read out as atrial fibrillation however at times can clearly see P waves and appears intermittent PACs. He denies any history of atrial fibrillation. He states his symptoms had started improved by the time he got to the EMS. Currently he states he feels well and denies any chest pain or pressure. Troponin normal 2 with EKG showing normal sinus rhythm with no significant ST or T wave abnormalities. Denies any recent fevers or chills. He states he has had a few of these episodes in the past however not for a few months and normally always occurs in the morning with shaking episodes. blood pressure was somewhat elevated in the 160s over 90s on presentation however has gone back down to his normal well-controlled 120s to 130s. PHYSICAL EXAM: VITAL SIGNS: Reviewed. GENERAL: Well-developed in no acute distress. NECK: Supple. No JVD or thyromegaly LUNGS: Respirations even and unlabored. Lungs essentially clear to auscultation bilaterally. HEART: Regular rate and rhythm. S1 and S2 heard. EXTREMITIES: Normal range of motion. No clubbing or cyanosis. Peripheral pulses intact. No lower extremity edema ASSESSMENT: Atypical chest pain, troponins negative x 3 Vague episodes of shaking, not feeling well, shortness of breath, and chest discomfort, does not appear to be ischemic in nature Coronary artery disease with previous CABG Hypertension Hyperlipidemia Atrial fibrillation, ruled out, EKG and telemetry reveals sinus mechanism PLAN: 2D echo has been ordered. Await results. Patient has received 2-week event monitor Continue current cardiac medications Patient may be discharged home today from a cardiac standpoint Patient to follow-up postdischarge with Dr. Barron Nurse practitioner note has been reviewed by physician. Signing provider agrees with the documented findings, assessment, and plan of care documented by PHOTOCOPYING EQUIPMENT MECHANIC as a scribe. Objective - Vital Signs Vital signs: Vital Signs Temp 98.5 F 02/21/24 17:55 Pulse 70 02/22/24 09:45 Resp 16 02/22/24 09:45 BP 156/76 02/22/24 09:45 Pulse Ox 98 02/22/24 09:45 FiO2 Intake & Output 02/21/24 02/22/24 02/22/24 18:59 06:59 18:59 Weight 130.635 kg - Labs CBC & Chem 7: 02/22/24 07:13 02/22/24 07:13 Labs: Abnormal Lab Results - Last 24 Hours (Table) 02/22/24 02/22/24 Range/Units 07:13 07:13 Plt Count 122 L (140-440) X 10*3/uL Lymphocytes # 0.48 L (0.90-5.00) X 10*3/uL Glucose 118 H (70-110) mg/dL
--- NOTE | 2024-02-22 12:33 | CA ---
Transthoracic Echo Report Name: Aron Noel Age: 83 Gender: M : 1940 Exam Date: 02/22/2024 08:44 Exam Location: [facility] Ht (in): 66 Wt (lb): 188 Ordering Physician: Jonah Simms DO ([email or web address]) Attending/Referring Phys: Casting Machine Adjuster Ro Lynn RDCS Procedure CPT: Indications: re: chest pain Cardiac Hx: Technical Quality: Fair Contrast 1: Definity Total Dose (mL): 2 Contrast 2: Total Dose (mL): MEASUREMENTS (Male / Female) Normal Values 2D ECHO LV Diastolic Diameter PLAX 5.9 cm 4.2 - 5.9 / 3.9 - 5.3 cm LV Systolic Diameter PLAX 5.3 cm IVS Diastolic Thickness 1.0 cm 0.6 - 1.0 / 0.6 - 0.9 cm LVPW Diastolic Thickness 0.7 cm 0.6 - 1.0 / 0.6 - 0.9 cm LV Relative Wall Thickness 0.3 RV Internal Dim ED PLAX 2.3 cm LA Systolic Diameter LX 5.4 cm 3.0 - 4.0 / 2.7 - 3.8 cm LV Diastolic Volume MOD BP 147.3 cm??? 67 - 155 / 56 - 104 cm??? LV Systolic Volume MOD BP 66.7 cm??? 22 - 58 / 19 - 49 cm??? LV Ejection Fraction MOD BP 54.7 % >= 55 % LV Diastolic Volume MOD 4C 132.9 cm??? LV Systolic Volume MOD 4C 67.3 cm??? LV Ejection Fraction MOD 4C 49.4 % LV Diastolic Length 4C 7.9 cm LV Systolic Length 4C 7.1 cm LV Diastolic Volume MOD 2C 148.4 cm??? LV Systolic Volume MOD 2C 68.4 cm??? LV Ejection Fraction MOD 2C 53.9 % LV Diastolic Length 2C 8.7 cm LV Systolic Length 2C 7.6 cm LA Volume 80.0 cm??? 18 - 58 / 22 - 52 cm??? LA Volume Index 39.6 cm???/m??? 16 - 28 cm???/m??? M-MODE Aortic Root Diameter MM 3.8 cm LA Systolic Diameter MM 4.3 cm LA Ao Ratio MM 1.1 AV Cusp Separation MM 1.7 cm DOPPLER AV Peak Velocity 161.9 cm/s AV Peak Gradient 10.5 mmHg AI Peak Velocity 281.6 cm/s AI Peak Gradient 31.7 mmHg AI Pressure Half Time 621.4 ms MV Area PHT 2.8 cm??? Mitral E Point Velocity 80.7 cm/s Mitral A Point Velocity 106.8 cm/s Mitral E to A Ratio 0.8 MV Deceleration Time 267.5 ms TR Peak Velocity 294.2 cm/s TR Peak Gradient 34.6 mmHg Right Ventricular Systolic Press 39.5 mmHg FINDINGS Left Ventricle Left ventricular ejection fraction is estimated at 45 %. Mildly increased left ventricular systolic volume. Moderately reduced global left ventricular systolic function. Left ventricular wall thickness normal. Right Ventricle Normal right ventricular size and function. Mild pulmonary hypertension. Right Atrium Mild right atrial dilatation. Left Atrium Severely increased left atrial diameter. Moderately increased left atrial volume. Mildly increased left atrial area. Mitral Valve Structurally normal mitral valve. Mild mitral regurgitation. Aortic Valve Trileaflet aortic valve. No aortic stenosis. Mild aortic regurgitation. Tricuspid Valve Structurally normal tricuspid valve. Mild tricuspid regurgitation. Pulmonic Valve Structurally normal pulmonic valve. No pulmonic stenosis. Mild pulmonic regurgitation. Pericardium No pericardial or pleural effusion. Aorta Mildly dilated aortic annulus. CONCLUSIONS Left ventricular ejection fraction 45% RVSP 40 Moderately dilated left atrium Mild mitral regurgitation Mild aortic regurgitation Mild tricuspid regurgitation Previewed by: Dr. Jonah Simms DO (Electronically Signed) Final Date: 22 February 2024 12:32
[2024-02-22 13:03] VITALS: BP 106/67; PULSE 88; RESP 18; TEMP 98.8
--- NOTE | 2024-02-22 13:04 | P.DS ---
Providers Date of admission: 02/21/24 06:41 Attending physician: Darian Benavides Consults: 02/21/24 06:40 Consult Physician Routine Consulting Provider: [facility] Consult Reason/Comments: chest pain Do you want consulting provider notified?: Yes Primary care physician: Darian Benavides [facility] Course: HISTORY OF PRESENT ILLNESS: 83-year-old with active medical history of atherosclerotic heart disease post CABG and multiple coronary artery disease involvement last heart catheter was done In October 18, 2023 with finding consistent with multi vessel involvement did not require any angioplasty or any intervention. Patient also has been having significant problem with tremor with? Parkinsonism never diagnosed with Parkinson disease, chronic history of lower back pain, history of hypertension, hyperlipidemia, hyperglycemia with A1c below 6, history of chronic osteoarthritis, BPH, fluctuation with blood pressure but has been better controlled lately. Patient woke up around 3:00 after midnight with significant pressure pain and discomfort in the midsternal area become quite a bit intense radiate toward both side have significant shortness of breath with it associated with mild nausea palpitation and cold sweats. His ended up giving him aspirin and nitroglycerin call 911 by the time EMS got to the scene gave him little bit more nitroglycerin and transported him to the hospital where was seen and evaluated the emergency department at [facility] with troponin was negative BNP was 421 his EKG showed Q waves in the inferior wall area which is an old with no change from before, chest x-ray did not show any major abnormality. Patient was diagnosed with angina his chest pain and symptom improved on nitroglycerin no further chest pain since. Patient be hospitalized will be seen cardiology review his last heart catheter and see if required to have any intervention. 02/22/24: Patient much improved this morning with no further episodes of angina. Vital signs show moderately hypertensive with systolic 150s but otherwise stable, serial troponins continue to be negative. Case was discussed with Anderson, feel that despite diffuse diffuse disease to RCA and LAD as well as complete occlusion of the circumflex, intervention would be a very high risk, and at this point continue to recommend medical management. Will start patient o n ranolazine 500mg twice a day for symptom relief, and plan to discharge patient home following completion of echo, with outpatient follow up as well as a 2-week event monitor due to possible arrhythmia noted on EKG. REVIEW OF SYSTEMS: CONSTITUTIONAL: Mildly overweight no acute respiratory distress EYES: No icterus sclerae, no conjunctivitis. EARS, NOSE, MOUTH, THROAT, and FACE: No sore throat, lymphadenopathy, carotid bruits or deformity. RESPIRATORY: No SOB cough or wheezes. CARDIOVASCULAR: Positive chest pain and angina with PND and orthopnea. GASTROINTESTINAL: Mild increased heartburn indigestion with nausea change in bowel habits no vomiting. GENITOURINARY: Negative for Hematuria or UTI, no kidney stones. BPH symptoms. INTEGUMENT/BREAST: Negative for any muscular injury with mild osteoarthritis.. HEMATOLOGIC/LYMPHATIC: Negative for bleed or purpura. MUSCULOSKELTAL: Negative for generalized myalgia and arthralgia. NEURLOGICAL: No LOC, Sz or syncope, blurred vision dizziness or abnormality. Mild tremor and abnormal balance and gait. BEHAVIORAL/PSYCH: Negative. ENDOCRINE: Negative. PHYSICAL EXAMINATION: General Appearance: Obese no acute respiratory distress. Neck HEENT: Supple, no lymphadenopathy, no thyroid enlargement, no carotid bruits. Lungs: Clear to auscultation without crackles or wheezes no rhonchi, no deformity. Chest Wall: Normal expansion with deep inspiration no tenderness and no deformity was found on exam, no costochondral pain or discomfort. Heart: Regular rate and rhythm, S1, S2 normal, no murmur, rub or gallop. Back: Symmetric, no curvature, ROM normal, no CVA tenderness. Abdomen: Soft, non-tender, bowel sounds active all four quadrants, no masses, no organomegaly. Extremities: Extremities normal, atraumatic, no cyanosis or edema. Pulses: 2+ and symmetric. Skin: Skin color, texture, tugor normal, no rashes or lesions. Neurologic: Alert oriented x3 cranial nerves II through XII intact, no motor deficit, no abnormal balance or gait. ASSESSMENT AND PLAN: _Atypical chest pain and angina: Patient was admitted to the hospital, chest pain improved after receiving aspirin 350mg and sublingual nitroglycerin. Serial troponins negative and EKG does not demonstate any acute ischemic changes. Cardiology evaluated the patient and recommended repeat echo, however based on findings from recent catheterization feel that there would be a high risk if intervention were attempted, continue to favor medical management. Echo is still pending. Will start patient on Ranexa 500mg twice a day to better control anginal symptoms. _Coronary artery disease post CABG: with multiple blockages found on October 2023 catheterization, continue on medical management. _Hypertension: Moderately hypertensive today, BP 156/76. Continue Inderal LA 60 mg, amlodipine/losartan 5/160 mg daily. _Hyperlipidemia: Remain on rosuvastatin 10 mg a day, have not noticed comp lication or side effect _BPH: Still on Flomax and finasteride no complication no obstruction. _Severe GERD: Remain on pantoprazole 40 mg daily. _Hyperglycemia with type 2 diabetes has been on Jardiance 10 mg a day A1c has been around 6.0. _Essential tremor: No sign of parkinsonism still on Inderal LA 60 mg a day. _GI prophylaxis: Still on pantoprazole. _DVT prophylaxis: Knee-high ROXIE hose and early mobilization. CODE STATUS: Full code. Hospital Course: Patient presented to emergency room on 02/21/24 for acute chest pain. At around 3:00am patient had been woken up by acute onset of chest pain and pressure in midsternal area. Pain continued to grow more intense with radiation down the left arm with associated shortness of breath, nausea, palpitations, and cold sweats. Patient's gave him aspirin and nitroglycerin, called 911, and by the time EMS arrived received a second dose of nitroglycerin and was transported to emergency room. When patient arrived to the emergency room felt considerable improvement in chest pain. Blood work was drawn troponin was negative, BNP was 421, EKG showed Q waves in inferior wall area which is an old finding, EKG negative for any acute ischemic changes. Chest x-ray negative for any acute findings. Patient was moderately hypertensive with systolic blood pressure in the 160s but otherwise stable. Patient was held in observation to be evaluated by cardiology and determine if any intervention is necessary. Patient was seen by cardiology who reviewed EKG and labs, as well as report from October 2023 cardiac catheterization. Patient has known diffuse coronary artery disease, specifically total occlusion of the circumflex, severe stenosis of the ostium of the RCA, and diffuse disease of the LAD, it was determined at time of catheterization that intervention would be a very high risk for the patient, and the decision was made to continue with medical management. Due to negative serial troponin, no acute changes on EKG, cardiology recommendations include continuing medical management at this time. Will repeat echocardiogram, and start patient on Ranexa 500mg twice a day to further allieviate anginal symptoms. Cardiology also recommended patient to receive 2-week event monitor due to possible arrhytmia noted on EKG, this will be arranged at discharge. At time of discharge patient has had resolution of chest pain, vital signs have remained stable. Bloodwork unremarkable, white blood cell 6.84, hemoglobin 14.9, platelet 122, potassium 4.6, BUN 24, creatinine 0.97, magnesium 1.9, proBNP 421. Patient okay to be discharged home following completion of echo, patient will follow-up with Dr. Barron in 1 week, and we will see the patient in our office in 1 to 2 days. Time spent on discharging patient was over 35 minutes. The patient was seen and evaluated by Dr. Benavides. Plan, assessment, and medications were all discussed, reviewed, and directed by Dr. Benavides with Joaquim BROCK acting as a scribe. Plan - Discharge Summary Discharge Rx Participant: No New Discharge Prescriptions: New Ranolazine [Ranexa] 500 mg PO Q12HR #60 tab Continue Baclofen [Lioresal] 10 mg PO BID Acetaminophen/Diphenhydramine [Tylenol PM 500-25mg] 2 tab PO HS Rosuvastatin [Crestor] 10 mg PO DAILY Finasteride [Proscar] 5 mg PO DAILY Nitroglycerin Sl Tabs [Nitrostat] 0.4 mg SUBLINGUAL Q5M PRN PRN Reason: Chest Pain Meloxicam [Mobic] 7.5 mg PO BID Tamsulosin HCl [Flomax] 0.4 mg PO BID Pantoprazole [Protonix] 40 mg PO HS Aspirin EC [Ecotrin Low Dose] 81 mg PO HS Dicyclomine [Bentyl] 10 mg PO BID Amlodipine Besylate/Valsartan [Amlodipine Besylate/Valsartan 5-160 mg] 1 tab PO HS DULoxetine HCL [Cymbalta] 20 mg PO HS Empagliflozin [Jardiance] 10 mg PO DAILY Aspirin EC [Ecotrin] 325 mg PO ONCE Zinc W/ Vit D 1 tab PO DAILY Isosorbide Mononitrate ER [Imdur] 30 mg PO DAILY Propranolol LA [Inderal LA] 60 mg PO Q2D Discharge Medication List Acetaminophen/Diphenhydramine [Tylenol PM 500-25mg] 2 tab PO HS 08/05/21 [History] Amlodipine Besylate/Valsartan [Amlodipine Besylate/Valsartan 5-160 mg] 1 tab PO HS 08/05/21 [History] Aspirin EC [Ecotrin Low Dose] 81 mg PO HS 08/05/21 [History] Baclofen [Lioresal] 10 mg PO BID 08/05/21 [History] Dicyclomine [Bentyl] 10 mg PO BID 08/05/21 [History] Finasteride [Proscar] 5 mg PO DAILY 08/05/21 [History] Meloxicam [Mobic] 7.5 mg PO BID 08/05/21 [History] Nitroglycerin Sl Tabs [Nitrostat] 0.4 mg SUBLINGUAL Q5M PRN 08/05/21 [History] Pantoprazole [Protonix] 40 mg PO HS 08/05/21 [History] Rosuvastatin [Crestor] 10 mg PO DAILY 08/05/21 [History] Tamsulosin HCl [Flomax] 0.4 mg PO BID 08/05/21 [History] DULoxetine HCL [Cymbalta] 20 mg PO HS 10/12/23 [History] Aspirin EC [Ecotrin] 325 mg PO ONCE 02/21/24 [History] Empagliflozin [Jardiance] 10 mg PO DAILY 02/21/24 [History] Isosorbide Mononitrate ER [Imdur] 30 mg PO DAILY 02/21/24 [History] Propranolol LA [Inderal LA] 60 mg PO Q2D 02/21/24 [History] Zinc W/ Vit D 1 tab PO DAILY 02/21/24 [History] Ranolazine [Ranexa] 500 mg PO Q12HR #60 tab 02/22/24 [Rx] Follow up Appointment(s)/Referral(s): Harrison Barron MD [STAFF PHYSICIAN] - 1 Week Darian Benavides MD [Primary Care Provider] - 1-2 days Discharge Disposition: HOME SELF-CARE
[2024-02-22] MEDS ORDERED: DULoxetine HCL 20 MG CAPSULE.DR PO SCH (21:00)
[2024-02-22] MEDS ORDERED: amLODIPine 5 MG TAB PO SCH (21:00)
[2024-02-22] MEDS ORDERED: ASPIRIN 81 MG PO SCH (21:00)
[2024-02-22] MEDS ORDERED: ACETAMINOPHEN TAB 500 MG TAB PO SCH (21:00)
[2024-02-22] MEDS ORDERED: PANTOPRAZOLE 40 MG TABLET PO SCH (21:00)
[2024-02-22] MEDS ORDERED: VALSARTAN 160 MG TAB PO SCH (21:00)
[2024-02-22] MEDS ORDERED: diphenhydrAMINE 25 MG CAP PO SCH (21:00)
== END 2024-02-22 12:53 | disposition home or self-care (01) ==
LOC: EC 05:04 → 6NMEDSUR 06:41
PROVIDERS: ADMIT Internal Medicine Geriatric Medicine; ATTEND Internal Medicine Geriatric Medicine
DX: R07.89 Other chest pain (principal); F41.9 Anxiety disorder, unspecified; I10 Essential (primary) hypertension; E78.5 Hyperlipidemia, unspecified; I25.10 Atherosclerotic heart disease of native coronary artery without angina pectoris; K21.9 Gastro-esophageal reflux disease without esophagitis; N40.0 Benign prostatic hyperplasia without lower urinary tract symptoms; E11.65 Type 2 diabetes mellitus with hyperglycemia; G25.0 Essential tremor; I48.91 Unspecified atrial fibrillation; I25.2 Old myocardial infarction; Z95.5 Presence of coronary angioplasty implant and graft; Z79.1 Long term (current) use of non-steroidal anti-inflammatories (NSAID); Z79.82 Long term (current) use of aspirin; Z79.84 Long term (current) use of oral hypoglycemic drugs; Z79.899 Other long term (current) drug therapy
CPT/HCPCS: 96360; 96361 ×2; 96372 ×2; 99285; 36415; 93005; 93270; 83880; 80053 ×2; 83735; 84484; 85025 ×2; 85610; 85730; 71046; G0378 ×2; C8929; S0138; J1644 ×2; Q9957; 93306

== ENCOUNTER 2024-02-23 12:23 | Emergency (ER) | payer MEDICARE ==
[2024-02-23 12:34] VITALS: RESP 18
--- NOTE | 2024-02-23 12:59 | ED ---
General Adult HPI - General Chief complaint: ENT Stated complaint: Tongue Swelling Time Seen by Provider: 02/23/24 12:35 Source: patient, RN notes reviewed, old records reviewed Mode of arrival: ambulatory Limitations: no limitations - History of Present Illness Initial comments: Is an 83-year-old male who presents to the emergency department stating that he woke up in the morning with a swollen tongue. Patient states he went back to sleep and when he got up it was still there. Patient states it is going down slightly in the last few hours. Patient denies any difficulty breathing states it is a little hard to swallow because he is not able to use his tongue but he can get things down once again to his throat. Denies any fever or chills. Pat ient denies any change in any medications. Patient denies any chest pain difficulty breathing - Related Data Home Medications Medication Instructions Recorded Confirmed Acetaminophen/Diphenhydramine 2 tab PO HS 08/05/21 02/21/24 [Tylenol PM 500-25mg] Amlodipine Besylate/Valsartan 1 tab PO HS 08/05/21 02/21/24 [Amlodipine Besylate/Valsartan 5-160 mg] Aspirin EC [Ecotrin Low Dose] 81 mg PO HS 08/05/21 02/21/24 Baclofen [Lioresal] 10 mg PO BID 08/05/21 02/21/24 Dicyclomine [Bentyl] 10 mg PO BID 08/05/21 02/21/24 Finasteride [Proscar] 5 mg PO DAILY 08/05/21 02/21/24 Meloxicam [Mobic] 7.5 mg PO BID 08/05/21 02/21/24 Nitroglycerin Sl Tabs [Nitrostat] 0.4 mg SUBLINGUAL Q5M PRN 08/05/21 02/21/24 Pantoprazole [Protonix] 40 mg PO HS 08/05/21 02/21/24 Rosuvastatin [Crestor] 10 mg PO DAILY 08/05/21 02/21/24 Tamsulosin HCl [Flomax] 0.4 mg PO BID 08/05/21 02/21/24 DULoxetine HCL [Cymbalta] 20 mg PO HS 10/12/23 02/21/24 Aspirin EC [Ecotrin] 325 mg PO ONCE 02/21/24 02/21/24 Empagliflozin [Jardiance] 10 mg PO DAILY 02/21/24 02/21/24 Isosorbide Mononitrate ER [Imdur] 30 mg PO DAILY 02/21/24 02/21/24 Propranolol LA [Inderal LA] 60 mg PO Q2D 02/21/24 02/21/24 Zinc W/ Vit D 1 tab PO DAILY 02/21/24 02/21/24 Previous Rx's Medication Instructions Recorded Ranolazine [Ranexa] 500 mg PO Q12HR #60 tab 02/22/24 predniSONE [Deltasone] 40 mg PO DAILY #8 tab 02/23/24 Allergies Allergy/AdvReac Type Severity Reaction Status Date / Time No Known Allergies Allergy Verified 02/23/24 12:34 Review of Systems ROS Statement: Those systems with pertinent positive or pertinent negative responses have been documented in the HPI. ROS Other: All systems not noted in ROS Statement are negative. Past Medical History Past Medical History: GERD/Reflux, Hyperlipidemia, Hypertension, Myocardial Infarction ([place]), Prostate Disorder Additional Past Medical History / Comment(s): Refuses CPAP Last Myocardial Infarction Date:: 2006, History of Any Multi-Drug Resistant Organisms: None Reported Past Surgical History: Cholecystectomy, Coronary Bypass/CABG, Heart Catheterization With Stent Additional Past Surgical History / Comment(s): 2008 cabg 3x vessel Past Anesthesia/Blood Transfusion Reactions: No Reported Reaction Date of Last Stent Placement:: 2015 Past Psychological History: Anxiety Smoking Status: Never smoker Past Alcohol Use History: None Reported Past Drug Use History: None Reported - Past Family History Brother(s) History Unknown: Yes Additional Family Medical History / Comment(s): leukemia, lung Father History Unknown: Yes Family Medical History: Myocardial Infarction ([place]) Sister(s) History Unknown: Yes Family Medical History: Asthma General Exam - General Exam Comments Initial Comments: GENERAL: Patient is well-developed and well-nourished. Patient is nontoxic and well- hydrated and is in mild distress. ENT: Neck is soft and supple. No significant lymphadenopathy is noted. Oropharynx is clear. Moist mucous membranes. Patient's tongue is swollen and protruding from the mouth. Neck has full range of motion without eliciting any pain. EYES: The sclera were anicteric and conjunctiva were pink and moist. Extraocular movements were intact and pupils were equal round and reactive to light. Eyelids were unremarkable. PULMONARY: Unlabored respirations. Good breath sounds bilaterally. No audible rales rhonchi or wheezing was noted. CARDIOVASCULAR: There is a regular rate and rhythm without any murmurs gallops or rubs. ABDOMEN: Soft and nontender with normal bowel sounds. SKIN: Skin is clear with no lesions or rashes and otherwise unremarkable. NEUROLOGIC: Patient is alert and oriented x3. Cranial nerves II through XII are grossly intact. Motor and sensory are also intact. Normal speech, volume and content. Symmetrical smile. MUSCULOSKELETAL: Normal extremities with adequate strength and full range of motion. LYMPHATICS: No significant lymphadenopathy is noted PSYCHIATRIC: Normal psychiatric evaluation. Limitations: no limitations Course Vital Signs 02/23/24 12:33 Temperature 98.0 F Pulse Rate 84 Respiratory 18 Rate Blood Pressure 145/70 O2 Sat by Pulse 96 Oximetry Medical Decision Making - Medical Decision Making Was pt. sent in by a medical professional or institution ([facility] Umanzor, [employer], urgent care, hospital, or jail...) When possible be specific @ -No Did you speak to anyone other than the patient for history (EMS, parent, family, police, friend...)? What history was obtained from this source @ -No Did you review nursing and triage notes (agree or disagree)? Why? @ -I reviewed and agree with nursing and triage notes Were old charts reviewed (outside hosp., previous admission, EMS record, old EKG, old radiological studies, urgent care reports/EKG's, jail records)? Report findings @ -No old charts were reviewed Differential Diagnosis? @ -Anaphylactic reaction, angioedema hereditary, angioedema secondary to AMARJIT or ARB's, this is not an all-inclusive list EKG interpreted by me (3pts min.). @ -As above X-rays interpreted by me (1pt min.). @ -None done CT interpreted by me (1pt min.). @ -None done U/S interpreted by me (1pt. min.). @ -None done What testing was considered but not performed or refused? (CT, X-rays, U/S, labs)? Why? @ -None What meds were considered but not given or refused? Why? @ -None Did you discuss the management of the patient with other professionals (professionals i.e. [facility] Umanzor, [employer], lab, RT, psych nurse, social work specialist, provider relations representative, teacher, civilian jail officer, business case analyst)? Give summary @ -Spoke with Dr. Benavides about the case and he will follow-up with the patient as outpatient Was smoking cessation discussed for >3mins.? @ -No Was critical care preformed (if so, how long)? @ -No Were there social determinants of health that impacted care today? How? (Homelessness, low income, unemployed, alcoholism, drug addiction, transportation, low edu. Level, literacy, decrease access to med. care, shelter, rehab)? @ -No Was there de-escalation of care discussed even if they declined (Discuss DNR or withdrawal of care, Hospice)? DNR status @ -No What co-morbidities impacted this encounter? (DM, HTN, Smoking, COPD, CAD, Cancer, CVA, ARF, Chemo, Hep., AIDS, mental health diagnosis, sleep apnea, morbid obesity)? @ -None Was patient admitted / discharged? Hospital course, mention meds given and route, prescriptions, significant lab abnormalities, going to OR and other pertinent info. @ -Patient received Solu-Medrol and prednisone in the emergency department. I went back and reevaluated the patient he seemed to have improved. Undiagnosed new problem with uncertain prognosis? @ -No Drug Therapy requiring intensive monitoring for toxicity (Heparin, Nitro, Insulin, Cardizem)? @ -No Were any procedures done? @ -No Diagnosis/symptom? @ -Angioedema Acute, or Chronic, or Acute on Chronic? @ -Acute Uncomplicated (without systemic symptoms) or Complicated (systemic symptoms)? @ -Complicated Side effects of treatment? @ -No Exacerbation, Progression, or Severe Exacerbation? @ -No Poses a threat to life or bodily function? How? (Chest pain, [place], [place], pneumonia, PE, COPD, DKA, ARF, appy, cholecystitis, CVA, Diverticulitis, Homicidal, Suicidal, threat to staff... and all critical care pts) @ -No Disposition Clinical Impression: Angioedema Disposition: HOME SELF-CARE Instructions (If sedation given, give patient instructions): Angioedema (ED) Additional Instructions: Patient should take Benadryl as needed for any swelling. Patient should return to the emergency department if there is any difficulty breathing. Prescriptions: predniSONE [Deltasone] 40 mg PO DAILY #8 tab Is patient prescribed a controlled substance at d/c from ED?: No Referrals: Darian Benavides MD [Primary Care Provider] - 1-2 days Time of Disposition: 13:42
[2024-02-23] MEDS: diphenhydrAMINE 50 MG/ML 1 ML VIAL IVP STA (13:08)
[2024-02-23] MEDS: methylPREDNISolone SOD SUCCI 125 MG/2 ML VIAL IV STA (13:11)
[2024-02-23 13:59] VITALS: BP 159/89; PULSE 71; TEMP 98.4
== END 2024-02-23 14:03 | disposition home or self-care (01) ==
LOC: EC 12:23
DX: T78.3XXA Angioneurotic edema, initial encounter (principal)
CPT/HCPCS: 99283; 96374; 96375; J1200; J2919

== ENCOUNTER 2024-12-14 11:22 | Inpatient (IN) | payer MEDICARE ==
--- NOTE | 2024-12-14 12:55 | XR ---
EXAMINATION TYPE: XR chest 2V DATE OF EXAM: 12/14/2024 CLINICAL INDICATION: Male, 84 years old with history of Weakness, TECHNIQUE: Frontal and lateral views of the chest are obtained. COMPARISON: Chest x-ray February 21, 2024 FINDINGS: Exam suboptimal secondary to patient's large body habitus. Lateral view is nondiagnostic du e to poor penetration. Overlying sternal wires are redemonstrated. There is no suspicious new focal a ir space opacity, pleural effusion, or pneumothorax seen. Persistent cardiomegaly. The osseous stru ctures are intact. IMPRESSION: Suboptimal study. Cardiomegaly without acute pulmonary process. [facility], , 12/14/2024 12:52 PM
--- NOTE | 2024-12-14 12:56 | XR ---
EXAMINATION TYPE: XR shoulder complete RT DATE OF EXAM: 12/14/2024 CLINICAL INDICATION: Male, 84 years old with history of fall, pain TECHNIQUE: 3 views of the right shoulder are attempted. COMPARISON: None. FINDINGS: Osseous structures are demineralized. There is acute comminuted minimally displaced fractur e through the surgical neck of the right proximal humerus. No glenohumeral joint dislocation. The acr omioclavicular joint is preserved. Visualized ribs are intact. IMPRESSION: There is acute comminuted minimally displaced fracture surgical neck right proximal angelina bennett. [facility], , 12/14/2024 12:54 PM
[2024-12-14 12:59] LABS: Basophils # (A) 0.03 10*3/uL (0.00-0.10); Basophils % (A) 0.4 %; Eosinophils # (A) 0.08 10*3/uL (0.04-0.35); HCT 43.3 % (39.6-50.0); HGB 14.6 g/dL (13.0-17.0); Lymphocytes # (A) 0.85 10*3/uL (0.90-5.00); Lymphocytes % (A) 11.1 %; MCH 31.3 pg (27.0-32.0); MCHC 33.7 g/dL (32.0-37.0); MCV 92.7 fL (80.0-97.0); Mean Platelet Volume 10.4 fL (9.5-12.2); Monocytes # (A) 0.78 10*3/uL (0.20-1.00); Monocytes % (A) 10.2 %; Neutrophils # (A) 5.87 10*3/uL (1.80-7.70); Platelet Count 154 10*3/uL (140-440); RBC 4.67 10*6/uL (4.40-5.60); RDW 13.4 % (11.5-14.5); WBC 7.63 10*3/uL (4.50-10.00)
[2024-12-14 13:14] LABS: ALT 14 U/L (4-49); AST 24 U/L (17-59); African American GFR (CKD) 67 (>60 ml/min/1.73 sqM); Albumin 4.1 g/dL (3.5-5.0); Alkaline Phosphatase 65 U/L (38-126); Anion Gap 13 mmol/L; Blood Urea Nitrogen 21 mg/dL (9-20); Calcium 9.6 mg/dL (8.4-10.2); Carbon Dioxide 24 mmol/L (22-30); Chloride 103 mmol/L (98-107); Glucose 120 mg/dL (74-99); Magnesium 2.1 mg/dL (1.6-2.3); Non-African American GFR(CKD) 58 (>60 ml/min/1.73 sqM); Potassium 3.9 mmol/L (3.5-5.1); Sodium 140 mmol/L (137-145); Total Bilirubin 1.1 mg/dL (0.2-1.3); Total Protein 6.6 g/dL (6.3-8.2)
[2024-12-14] MEDS: LACTATED RINGERS 1,000 ML IV ONE (13:24)
[2024-12-14 13:25] LABS: Partial Thromboplastin Time 23.2 sec (22.0-30.0); Prothrombin Time 10.9 sec (10.0-12.5)
--- NOTE | 2024-12-14 13:30 | CT ---
EXAMINATION TYPE: CT brain wo con DATE OF EXAM: 12/14/2024 1:16 PM COMPARISON: None. CLINICAL INDICATION: Male, 84 years old with history of weakness, weakness TECHNIQUE: CT of the brain is performed utilizing 3 mm thick sections through the posterior fossa and 3 mm thick sections through the remaining calvarium. Study is performed within 24 hours of arrival to the hospital. Contrast used: mL of , (none if empty) CT DLP: 1131.4 mGycm, Automated exposure control for dose reduction was used. FINDINGS: No abnormal hyperdensity is present to suggest an acute intracranial hemorrhage. No mass lesion is evident. No acute infarcts are evident. Periventricular white matter hypodensities, likely on the basis of chr onic white matter ischemic changes. Ventricles and sulci are prominent for the patient age. There is opacification of the right frontal sinus. Remaining paranasal sinuses and mastoid air cells are clear. IMPRESSION: 1. No acute intracranial process. Follow up MRI can be performed as clinically indicated. 2. Chronic appearing periventricular white matter ischemic changes with atrophy. 3. Opacified right frontal sinus. [facility], , 12/14/2024 1:28 PM
[2024-12-14 13:40] LABS: Influenza A Not Detected (Not Detectd); Influenza B Not Detected (Not Detectd); RSV Not Detected (Not Detectd)
--- NOTE | 2024-12-14 14:41 | ED ---
General Adult HPI - General Chief complaint: Weakness Stated complaint: increased weakness Time Seen by Provider: 12/14/24 11:35 Source: patient, family, EMS, RN notes reviewed, old records reviewed Mode of arrival: EMS Limitations: altered mental status - History of Present Illness Initial comments: Patient is an 84-year-old male who presents emergency department for weakness and frequent falls. Multiple falls over the last few weeks at home. Also was having increased intermittent somewhat confusion and paranoia. Family. He is alert and oriented x 4 but apparently has been acting more strangely at home and this has been a more progressive process. Unknown if this is related to possibly dementia or not. Is not on thinners. Did fall again today or overnight and is too weak to move. Broke his right humerus from a fall within the last week but on the fall last night no obvious injuries. Presents for further evaluation. Patient denies any acute complaints other than pain in the right shoulder. - Related Data Home Medications Medication Instructions Recorded Confirmed Acetaminophen/Diphenhydramine 2 tab PO HS 08/05/21 12/14/24 [Tylenol PM 500-25mg] Aspirin EC [Ecotrin Low Dose] 81 mg PO HS 08/05/21 12/14/24 Baclofen [Lioresal] 10 mg PO BID 08/05/21 12/14/24 Dicyclomine [Bentyl] 10 mg PO BID 08/05/21 12/14/24 Finasteride [Proscar] 5 mg PO DAILY 08/05/21 12/14/24 Meloxicam [Mobic] 7.5 mg PO BID 08/05/21 12/14/24 Nitroglycerin Sl Tabs [Nitrostat] 0.4 mg SUBLINGUAL Q5M PRN 08/05/21 12/14/24 Pantoprazole [Protonix] 40 mg PO HS 08/05/21 12/14/24 Rosuvastatin [Crestor] 10 mg PO DAILY 08/05/21 12/14/24 Tamsulosin HCl [Flomax] 0.4 mg PO BID 08/05/21 12/14/24 DULoxetine HCL [Cymbalta] 20 mg PO HS 10/12/23 12/14/24 Empagliflozin [Jardiance] 10 mg PO DAILY 02/21/24 12/14/24 Isosorbide Mononitrate ER [Imdur] 30 mg PO DAILY 02/21/24 12/14/24 Propranolol HCl [Propranolol HCl 80 mg PO DAILY 12/14/24 12/14/24 ER] Ranolazine [Ranexa] 500 mg PO HS 12/14/24 12/14/24 Zinc 50mg With Vitamin D3 50mcg 1 tab PO DAILY 12/14/24 12/14/24 hydrALAZINE HCL [Apresoline] 25 mg PO BID 12/14/24 12/14/24 Allergies Allergy/AdvReac Type Severity Reaction Status Date / Time No Known Allergies Allergy Verified 12/14/24 13:23 Review of Systems ROS Statement: Those systems with pertinent positive or pertinent negative responses have been documented in the HPI. Review of Systems: CONST: Denies fever EYES: Denies blurry vision ENT: Denies nasal congestion C/V: Denies Chest pain RESP: Denies shortness of breath GI: Denies abdominal pain : Denies dysuria SKIN: Denies rash. MSK: Endorses right shoulder pain NEURO: Denies headache ROS Other: All systems not noted in ROS Statement are negative. Past Medical History Past Medical History: GERD/Reflux, Hyperlipidemia, Hypertension, Myocardial Infarction ([place]), Prostate Disorder Additional Past Medical History / Comment(s): Refuses CPAP Last Myocardial Infarction Date:: 2006, History of Any Multi-Drug Resistant Organisms: None Reported Past Surgical History: Cholecystectomy, Coronary Bypass/CABG, Heart Catheterization With Stent Additional Past Surgical History / Comment(s): 2008 cabg 3x vessel Past Anesthesia/Blood Transfusion Reactions: No Reported Reaction Date of Last Stent Placement:: 2015 Past Psychological History: Anxiety Smoking Status: Never smoker Past Alcohol Use History: None Reported Past Drug Use History: None Reported - Past Family History Brother(s) History Unknown: Yes Additional Family Medical History / Comment(s): leukemia, lung Father History Unknown: Yes Family Medical History: Myocardial Infarction ([place]) Sister(s) History Unknown: Yes Family Medical History: Asthma General Exam - General Exam Comments Initial Comments: General: Appears in no acute distress. HEAD: Normal with no signs of head trauma. EYES: PERRLA, EOMI, conjunctiva normal, no discharge. Pupils are 3 mm and equal bilaterally. ENT: Hearing grossly intact, normal oropharynx. RESPIRATORY: Clear breath sounds bilaterally. No wheezes, rales, or rhonchi. C/V: Regular rate and rhythm. S1 and S2 auscultated, no edema, peripheral pulses 2+ and intact throughout ABD: Abd is soft, nontender, nondistended EXT: Normal range of motion, no obvious deformity. No midline cervical, thoraci c, lumbar spine tenderness to palpation. SKIN: Bruising over the right shoulder. NEURO: Alert and oriented x 4. Reduced range of motion right shoulder secondary to right shoulder fracture. No other obvious focal deficits. Some mild weakness symmetrical bilateral lower extremity. Limitations: altered mental status Course Vital Signs 12/14/24 12/14/24 11:23 13:44 Temperature 99.0 F Pulse Rate 63 59 L Respiratory 18 18 Rate Blood Pressure 129/67 152/87 O2 Sat by Pulse 97 95 Oximetry Medical Decision Making - Medical Decision Making Was pt. sent in by a medical professional or institution (, PA, CONCRET[employer] M[employer]ING [employer]IVER, urgent care, hospital, or senior care...) When possible be specific @ -No Did you speak to anyone other than the patient for history (EMS, parent, family, police, friend...)? What history was obtained from this source @ -Patient's informed me of the concern for possible dementia and progressive worsening behavioral changes as well as debility. Did you review nursing and triage notes (agree or disagree)? Why? @ -I reviewed and agree with nursing and triage notes Were old charts reviewed (outside hosp., previous admission, EMS record, old EKG, old radiological studies, urgent care reports/EKG's, senior care records)? Report findings @ -No old charts were reviewed Differential Diagnosis (chest pain, altered mental status, abdominal pain women, abdominal pain men, vaginal bleeding, weakness, fever, dyspnea, syncope, headache, dizziness, GI bleed, back pain, seizure, CVA, palpatations, mental health, musculoskeletal)? @ -Differential Weakness: Hypoglycemia, shock, sepsis, hyponatremia, anemia, infection, AL, ETOH, adverse medicine reaction, overdose, stroke, this is not meant to be an all-inclusive list. EKG interpreted by me (3pts min.). @ -As above X-rays interpreted by me (1pt min.). @ -Right shoulder x-ray demonstrates the known right shoulder fracture of the proximal humerus. Chest x-ray negative for any obvious acute cardiopulmonary process. CT interpreted by me (1pt min.). @ -CT brain revealed no evidence of acute intracranial process. U/S interpreted by me (1pt. min.). @ -None done What testing was considered but not performed or refused? (CT, X-rays, U/S, labs)? Why? @ -None What meds were considered but not given or refused? Why? @ -None Did you discuss the management of the patient with other professionals (professionals i.e. DrAta, PA, CONCRET[employer]ING [employer]IVER, lab, RT, psych nurse, director social, material attendant, teacher, fundraising officer, transplant case manager)? Give summary @ -Discussed with Dr. Sultana who accepted the admission. Was smoking cessation discussed for >3mins.? @ -No Was critical care preformed (if so, how long)? @ -No Were there social determinants of health that impacted care today? How? (Homelessness, low income, unemployed, alcoholism, drug addiction, transpor tation, low edu. Level, literacy, decrease access to med. care, [facility], rehab)? @ -No Was there de-escalation of care discussed even if they declined (Discuss DNR or withdrawal of care, Hospice)? DNR status @ -No What co-morbidities impacted this encounter? (DM, HTN, Smoking, COPD, CAD, Cancer, CVA, ARF, Chemo, Hep., AIDS, mental health diagnosis, sleep apnea, morbid obesity)? @ -None Was patient admitted / discharged? Hospital course, mention meds given and route, prescriptions, significant lab abnormalities, going to OR and other pertinent info. @ -Patient presents with behavioral changes that are progressive over the course of months to years as well as worsening frequent falls lately. Likely will be admitted for PT and OT eval and debility. Will obtain general workup, CT brain, chest x-ray, right shoulder x-ray. Has a known right shoulder fracture from a fall within the last week but not last night. Did have a fall last night. Presents for further evaluation. Was due to follow-up with Dr. Rodriguez of orthopedics. Patient given IV fluids and Tylenol. Labs are remarkable for no obvious acute process. Urinalysis still pending. Imaging negative for any obvious acute traumatic injury other than the known right shoulder fracture. Patient's is concerned due to his progressive behavioral changes as well as the increased frequent falls. We will admit the patient at this time for debility and evaluation for home health versus placement. Consults placed to neurology, psychiatry, orthopedics. He was in agreement this plan. I spoke with the admitting provider, Dr. Sultana who accepted the admission. Patient mad a medicine admission as the right humerus fracture is not acute on this visit but rather from a fall from within the last week was due to already follow-up outpatient with orthopedics for it. Not a new diagnosis. Undiagnosed new problem with uncertain prognosis? @ -No Drug Therapy requiring intensive monitoring for toxicity (Heparin, Nitro, Insulin, Cardizem)? @ -No Were any procedures done? @ -No Diagnosis/symptom? @ -Debility, behavioral changes falls, right humerus fracture Acute, or Chronic, or Acute on Chronic? @ -Acute Uncomplicated (without systemic symptoms) or Complicated (systemic symptoms)? @ -Complicated Side effects of treatment? @ -No Exacerbation, Progression, or Severe Exacerbation? @ -No Poses a threat to life or bodily function? How? (Chest pain, [place], AL, pneumonia, PE, COPD, DKA, ARF, appy, cholecystitis, CVA, Diverticulitis, Homicidal, Suicidal, threat to staff... and all critical care pts) @ -Potentially, yes - Lab Data Result diagrams: 12/14/24 12:23 12/14/24 12:23 Lab Results 12/14/24 12/14/24 12/14/24 Range/Units 12:23 12:23 12:23 WBC 7.63 (4.50-10.00) 10*3/uL RBC 4.67 (4.40-5.60) 10*6/uL Hgb 14.6 (13.0-17.0) g/dL Hct 43.3 (39.6-50.0) % MCV 92.7 (80.0-97.0) fL MCH 31.3 (27.0-32.0) pg MCHC 33.7 (32.0-37.0) g/dL Plt Count 154 (140-440) 10*3/uL MPV 10.4 (9.5-12.2) fL Immature Gran % (Auto) 0.3 % Neutrophils % 77.0 % Lymphocytes % 11.1 % Monocytes % 10.2 % Eosinophils % 1.0 % Basophils % 0.4 % Immature Gran # 0.02 (0.00-0.04) 10*3/uL Neutrophils # 5.87 (1.80-7.70) 10*3/uL Lymphocytes # 0.85 L (0.90-5.00) 10*3/uL Monocytes # 0.78 (0.20-1.00) 10*3/uL Eosinophils # 0.08 (0.04-0.35) 10*3/uL Basophils # 0.03 (0.00-0.10) 10*3/uL PT 10.9 (10.0-12.5) sec INR 1.0 (<1.2) APTT 23.2 (22.0-30.0) sec Sodium 140 (137-145) mmol/L Potassium 3.9 (3.5-5.1) mmol/L Chloride 103 (98-107) mmol/L Carbon Dioxide 24 (22-30) mmol/L Anion Gap 13 mmol/L BUN 21 H (9-20) mg/dL Creatinine 1.15 (0.66-1.25) mg/dL Est GFR (CKD-EPI)AfAm 67 (>60 ml/min/1.73 sqM) Est GFR (CKD-EPI)NonAf 58 (>60 ml/min/1.73 sqM) Glucose 120 H (74-99) mg/dL Plasma Lactic Acid Jose (0.7-2.0) mmol/L Calcium 9.6 (8.4-10.2) mg/dL Magnesium 2.1 (1.6-2.3) mg/dL Total Bilirubin 1.1 (0.2-1.3) mg/dL AST 24 (17-59) U/L ALT 14 (4-49) U/L Alkaline Phosphatase 65 (38-126) U/L Total Protein 6.6 (6.3-8.2) g/dL Albumin 4.1 (3.5-5.0) g/dL TSH 1.400 (0.465-4.680) mIU/L Influenza Type A (PCR) (Not Detectd) Influenza Type B (PCR) (Not Detectd) RSV (PCR) (Not Detectd) SARS-CoV-2 (PCR) (Not Detectd) 12/14/24 12/14/24 Range/Units 12:23 12:56 WBC (4.50-10.00) 10*3/uL RBC (4.40-5.60) 10*6/uL Hgb (13.0-17.0) g/dL Hct (39.6-50.0) % MCV (80.0-97.0) fL MCH (27.0-32.0) pg MCHC (32.0-37.0) g/dL Plt Count (140-440) 10*3/uL MPV (9.5-12.2) fL Immature Gran % (Auto) % Neutrophils % % Lymphocytes % % Monocytes % % Eosinophils % % Basophils % % Immature Gran # (0.00-0.04) 10*3/uL Neutrophils # (1.80-7.70) 10*3/uL Lymphocytes # (0.90-5.00) 10*3/uL Monocytes # (0.20-1.00) 10*3/uL Eosinophils # (0.04-0.35) 10*3/uL Basophils # (0.00-0.10) 10*3/uL PT (10.0-12.5) sec INR (<1.2) APTT (22.0-30.0) sec Sodium (137-145) mmol/L Potassium (3.5-5.1) mmol/L Chloride (98-107) mmol/L Carbon Dioxide (22-30) mmol/L Anion Gap mmol/L BUN (9-20) mg/dL Creatinine (0.66-1.25) mg/dL Est GFR (CKD-EPI)AfAm (>60 ml/min/1.73 sqM) Est GFR (CKD-EPI)NonAf (>60 ml/min/1.73 sqM) Glucose (74-99) mg/dL Plasma Lactic Acid Jose 1.2 (0.7-2.0) mmol/L Calcium (8.4-10.2) mg/dL Magnesium (1.6-2.3) mg/dL Total Bilirubin (0.2-1.3) mg/dL AST (17-59) U/L ALT (4-49) U/L Alkaline Phosphatase (38-126) U/L Total Protein (6.3-8.2) g/dL Albumin (3.5-5.0) g/dL TSH (0.465-4.680) mIU/L Influenza Type A (PCR) Not Detected (Not Detectd) Influenza Type B (PCR) Not Detected (Not Detectd) RSV (PCR) Not Detected (Not Detectd) SARS-CoV-2 (PCR) Not Detected (Not Detectd) - EKG Data -: EKG Interpreted by Me EKG Comments: 12-lead Electrocardiogram Interpretation Note EKG was reviewed and interpreted by myself. 12-lead ECG performed at 1205 is interpreted by me as revealing normal sinus rhythm at a rate of 63 beats per minute. Occasional PVCs. Left axis deviation. CA interval is 178 ms, QRS duration is 110 ms.. There were no ST or T wave abnormalities to suggest myocardial ischemia or injury. R wave progression across the precordium was satisfactory. By my interpretation this EKG is non-diagnostic for acute ischemia. Disposition Clinical Impression: Debility, Behavioral change, Falls, Proximal humerus fracture Disposition: ADMITTED IP TO THIS [facility] Condition: Stable Referrals: Darian Benavides MD [Primary Care Provider] - 1-2 days Time of Disposition: 14:30
[2024-12-14] MEDS ORDERED: ONDANSETRON 4 MG/2 ML VIAL IVP PRN (14:42)
[2024-12-14] MEDS ORDERED: NALOXONE 0.4 MG/ML 1 ML VIAL IV PRN (14:42)
--- NOTE | 2024-12-14 16:31 | P.CNNES ---
History of Present Illness Consult date: 12/14/24 Requesting physician: Wander Ramirez Reason for Consult: behavioral change History of Present Illness: This is an 84-year-old gentleman with history of essential tremor, multiple falls, coronary artery disease and cardiac bypass who presents emergency department recurrent falls. The is at bedside who helps with the history. It seems that the patient has been having falls for at least 8 months and patient falls because he states that he has the urge to go to the bathroom and as a result he does not make it so he urinates on the floor and trips on his urine. Also this time around patient fell he stated that he is going to the bathroom and that he has vinyl floors and he slipped hitting the bathroom floor and fell and he had nasal bleeding. Denies any focal weakness associated with this prior to the episode. Denies losing consciousness. According to the he is refusing to use any cane for ambulation and he was told that he needs to use a cane even with his frequent falls but it seems that in the last few days he has. He has right humerus fracture that is old. Patient does have tremor over the right upper extremity that started more than 2 years ago at least and according to started with resting that progressed with holding objects. It seems that he was evaluated by Dr. Carroll and at least 2 MRI of the brain which were unremarkable and he was told he does not have Parkinson disease by Dr. Carroll. He was given Sinemet and primidone in the past without any improvement of his condition. He denies of any back pain. Currently denies of any headache. The the patient has likely dementia but it is not diagnosed. Per ED team's note seems the patient has been having increased confusion and paranoia. Some of the workup during this hospital visit consisted of: I reviewed the lab workup TSH is 1.40 CT of the head is reported as no acute intracranial process. Chronic appearing periventricular white matter ischemic changes with atrophy. Opacified right frontal sinus. I personally reviewed the CT and agree with the report. Review of Systems As per HPI. Past Medical History Past Medical History: GERD/Reflux, Hyperlipidemia, Hypertension, Myocardial Infarction ([place]), Prostate Disorder Additional Past Medical History / Comment(s): Refuses CPAP Last Myocardial Infarction Date:: 2006, History of Any Multi-Drug Resistant Organisms: None Reported Past Surgical History: Cholecystectomy, Coronary Bypass/CABG, Heart Catheterization With Stent Additional Past Surgical History / Comment(s): 2009 cabg 3x vessel Past Anesthesia/Blood Transfusion Reactions: No Reported Reaction Date of Last Stent Placement:: 2015 Past Psychological History: Anxiety Smoking Status: Never smoker Past Alcohol Use History: None Reported Past Drug Use History: None Reported - Past Family History Brother(s) History Unknown: Yes Additional Family Medical History / Comment(s): leukemia, lung Father History Unknown: Yes Family Medical History: Myocardial Infarction ([place]) Sister(s) History Unknown: Yes Family Medical History: Asthma Medications and Allergies Home Medications Medication Instructions Recorded Confirmed Type Acetaminophen/Diphenhydramine 2 tab PO HS 08/05/21 12/14/24 History [Tylenol PM 500-25mg] Aspirin EC [Ecotrin Low Dose] 81 mg PO HS 08/05/21 12/14/24 History Baclofen [Lioresal] 10 mg PO BID 08/05/21 12/14/24 History Dicyclomine [Bentyl] 10 mg PO BID 08/05/21 12/14/24 History Finasteride [Proscar] 5 mg PO DAILY 08/05/21 12/14/24 History Meloxicam [Mobic] 7.5 mg PO BID 08/05/21 12/14/24 History Nitroglycerin Sl Tabs [Nitrostat] 0.4 mg SUBLINGUAL Q5M PRN 08/05/21 12/14/24 History Pantoprazole [Protonix] 40 mg PO HS 08/05/21 12/14/24 History Rosuvastatin [Crestor] 10 mg PO DAILY 08/05/21 12/14/24 History Tamsulosin HCl [Flomax] 0.4 mg PO BID 08/05/21 12/14/24 History DULoxetine HCL [Cymbalta] 20 mg PO HS 10/12/23 12/14/24 History Empagliflozin [Jardiance] 10 mg PO DAILY 02/21/24 12/14/24 History Isosorbide Mononitrate ER [Imdur] 30 mg PO DAILY 02/21/24 12/14/24 History Propranolol HCl [Propranolol HCl 80 mg PO DAILY 12/14/24 12/14/24 History ER] Ranolazine [Ranexa] 500 mg PO HS 12/14/24 12/14/24 History Zinc 50mg With Vitamin D3 50mcg 1 tab PO DAILY 12/14/24 12/14/24 History hydrALAZINE HCL [Apresoline] 25 mg PO BID 12/14/24 12/14/24 History Allergies Allergy/AdvReac Type Severity Reaction Status Date / Time No Known Allergies Allergy Verified 12/14/24 13:23 Physical Examination - Vital Signs Vital Signs: Vital Signs Temp Pulse Resp BP Pulse Ox 12/14/24 13:44 59 L 18 152/87 95 12/14/24 11:23 99.0 F 63 18 129/67 97 Intake and Output 12/14/24 12/14/24 12/14/24 06:59 14:59 22:59 Other: Weight 86.183 kg GENERAL: The patient is lying in bed and is not in acute distress. NEUROLOGICAL: Higher mental function: The patient is awake, alert, oriented to self, time and stated he is in the hospital but does not know the name. Patient is following s imple commands. No aphasia and no neglect. Cranial nerves: The pupils are round, equal and reactive to light and accommodation. Visual schroeder are full to confrontation throughout. Extraocular movement is limitation because lack of cooperation and would turn his head with eye movement. Facial sensation is normal to touch throughout. The facial strength is normal throughout. Hearing is severely decreased bilaterally to hand rub. Tongue is midline and moved [id number] without any difficulty. No dysarthria is noted. Shoulder shrug is normal bilaterally. Motor: The strength is very limited in the right upper extremity because of old right humerus fracture and every time he would try to lift right arm he has pain and then had tremor but at rest no tremor. Otherwise 5 over 5 throughout. Normal tone and bulk. Cerebellum: Normal finger to nose over the left. Sensation: Sensation is normal to touch throughout. Reflexes (right/left): 2+ throughout. Plantars are mute bilaterally. Results - Laboratory Findings CBC and BMP: 12/14/24 12:23 12/14/24 12:23 Abnormal Lab Findings: Abnormal Labs 12/14/24 12/14/24 12:23 12:23 Lymphocytes # 0.85 L BUN 21 H Glucose 120 H Assessment and Plan Assessment: This is an 84-year-old gentleman with frequent falls who presents to the emergency department because of recent fall and altered mental status. Frequent falls: Patient is not compliant using cane or any assistance while w alking even though he has been having falls, he had episode of falls since he cannot make it to the bathroom and has urinary incontinence as a result and then slip on urine. He had two MRI Brain which were negative for acute process in past per and was told he does not have Parkinson's disease and he failed improvement with Primidone or Sinemet trial. History of right humerus fracture due to a fall Probable dementia History of coronary artery status post stent History of cardiac bypass Plan: I ordered orthostatic vitals Ordered routine EEG for his episode of confusion. Currently is oriented X3. I doubt seizure. I ordered vitamin B12, folate, ammonia level Patient was counseled on using an assistance device with ambulation because of his recurrent falls. Recommend a walker. Recommend patient to follow-up with his outpatient neurologist, Dr. Carroll as well as detailed neuropsych evaluation for memory testing. PT and OT are consulted Will defer the rest of medical management to primary team and other specialist The plan is discussed with the patient and his . Thank you for the consultation. Dr. Stanley will resume neurology service tomorrow then Dr. Perez resume neurology service this Tuesday a.m. Time with Patient: Greater than 30
[2024-12-14] MEDS: ACETAMINOPHEN TAB 325 MG TAB PO STA (19:06)
[2024-12-14] MEDS: SODIUM CHLORIDE 0.9% 1,000 ML IV STA (19:07)
[2024-12-14 22:21] LABS: Appearance,Urine Clear (Clear); Bilirubin,Urine Negative (Negative); Blood,Urine Negative (Negative); Color,Urine Light Yellow; Glucose,Urine (UA) 4+ (Negative); Ketones,Urine Trace (Negative); Leukocyte Esterase,Urine Negative (Negative); Nitrite,Urine Negative (Negative); Protein,Urine Trace (Negative); Urobilinogen,Urine <2.0 mg/dL (<2.0)
[2024-12-14] MEDS: hydrALAZINE HCL 20 MG/ML 1 ML VIAL IVP PRN (23:21)
--- NOTE | 2024-12-15 10:29 | P.CNOR ---
History of Present Illness - [facility] Consult date: 12/15/24 History of present illness: This is an 84-year-old gentleman with frequent falls who presented to the emergency department on 12/14/2024 because of recent fall and altered mental status. He has a past medical history of essential tremor, multiple falls, coronary artery disease and cardiac bypass. Per patient he has had multiple falls over the last 2 months. Per chart review he is having these falls due to trying to ambulate quickly but sometimes has incontinence and slips and falls. Patient states he thinks he broke his right humerus a month ago from a fall. Per the patient was brought into the emergency department for a more recent fall within the last week and confusion by family. Today at the time of my exam the patient's only pain complaint was isolated to the right shoulder. Past Medical History Past Medical History: GERD/Reflux, Hyperlipidemia, Hypertension, Myocardial Infarction ([place]), Prostate Disorder Additional Past Medical History / Comment(s): Refuses CPAP Last Myocardial Infarction Date:: 2006, History of Any Multi-Drug Resistant Organisms: None Reported Past Surgical History: Cholecystectomy, Coronary Bypass/CABG, Heart Catheterization With Stent Additional Past Surgical History / Comment(s): 2008 cabg 3x vessel Past Anesthesia/Blood Transfusion Reactions: No Reported Reaction Date of Last Stent Placement:: 2015 Past Psychological History: Anxiety Smoking Status: Never smoker Past Alcohol Use History: None Reported Past Drug Use History: None Reported - Past Family History Brother(s) History Unknown: Yes Additional Family Medical History / Comment(s): leukemia, lung Father History Unknown: Yes Family Medical History: Myocardial Infarction ([place]) Sister(s) History Unknown: Yes Family Medical History: Asthma Medications and Allergies Home Medications Medication Instructions Recorded Confirmed Type Acetaminophen/Diphenhydramine 2 tab PO HS 08/05/21 12/14/24 History [Tylenol PM 500-25mg] Aspirin EC [Ecotrin Low Dose] 81 mg PO HS 08/05/21 12/14/24 History Baclofen [Lioresal] 10 mg PO BID 08/05/21 12/14/24 History Dicyclomine [Bentyl] 10 mg PO BID 08/05/21 12/14/24 History Finasteride [Proscar] 5 mg PO DAILY 08/05/21 12/14/24 History Meloxicam [Mobic] 7.5 mg PO BID 08/05/21 12/14/24 History Nitroglycerin Sl Tabs [Nitrostat] 0.4 mg SUBLINGUAL Q5M PRN 08/05/21 12/14/24 History Pantoprazole [Protonix] 40 mg PO HS 08/05/21 12/14/24 History Rosuvastatin [Crestor] 10 mg PO DAILY 08/05/21 12/14/24 History Tamsulosin HCl [Flomax] 0.4 mg PO BID 08/05/21 12/14/24 History DULoxetine HCL [Cymbalta] 20 mg PO HS 10/12/23 12/14/24 History Empagliflozin [Jardiance] 10 mg PO DAILY 02/21/24 12/14/24 History Isosorbide Mononitrate ER [Imdur] 30 mg PO DAILY 02/21/24 12/14/24 History Propranolol HCl [Propranolol HCl 80 mg PO DAILY 12/14/24 12/14/24 History ER] Ranolazine [Ranexa] 500 mg PO HS 12/14/24 12/14/24 History Zinc 50mg With Vitamin D3 50mcg 1 tab PO DAILY 12/14/24 12/14/24 History hydrALAZINE HCL [Apresoline] 25 mg PO BID 12/14/24 12/14/24 History Allergies Allergy/AdvReac Type Severity Reaction Status Date / Time No Known Allergies Allergy Verified 12/14/24 13:23 Physical Examination Patient lying in bed apartment. No acute distress. Head is normocephalic and atraumatic. No pain to palpation over the cervical spine or paraspinal muscles. Right upper extremity: Inspection: Ecchymosis over the bicep. Mild swelling. No obvious deformity. Palpation: Tenderness to palpation over the proximal right humerus. Nontender to palpation over clavicle, scapula, elbow, forearm, wrist, hand, or fingers. Motor: Patient has pain with attempts at abduction but deltoid contraction and is able to shrug shoulders. Patient is able to flex and extend at the elbow and wrist. 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 Capillary refill under 2 seconds in all digits. Sensation: grossly intact to light touch. Bilateral lower extremity exam: Inspection: No obvious deformity. Palpation: No tenderness to pelvis, hips, knee, legs, ankles or knees. Range of motion: No pain with logroll. No pain with passive range of motion of the hip knee ankle or foot. Calves were soft to compression, negative Homans' sign. Vascular: Dorsalis pedis pulse 2+ bilaterally. Sensation: grossly intact to light touch throughout the bilateral lower extremities. Results - Labs Labs: Abnormal Lab Results - Last 24 Hours (Table) 12/14/24 12/14/24 12/14/24 Range/Units 12:23 12:23 22:07 Lymphocytes # 0.85 L (0.90-5.00) 10*3/uL BUN 21 H (9-20) mg/dL Glucose 120 H (74-99) mg/dL Urine Protein Trace H (Negative) Urine Glucose (UA) 4+ H (Negative) Urine Ketones Trace H (Negative) H & H 12/14/24 Range/Units 12:23 Hgb 14.6 (13.0-17.0) g/dL Hct 43.3 (39.6-50.0) % Coagulation 12/14/24 Range/Units 12:23 INR 1.0 (<1.2) Result Diagrams: 12/16/24 06:18 12/16/24 06:18 Assessment and Plan Assessment: Frequent falls Closed right proximal humerus fracture minimally displaced Plan: Patient complaining of isolated right shoulder pain. X-rays were reviewed and show proximal right humerus fracture with minimal d isplacement. No acute surgical interventions are recommended at this time. We recommend treatment with conservative management with a sling, nonweightbearing of the right upper extremity, and follow-up as an outpatient for serial x-rays. Pain management per primary team. Case was discussed with Dr. Juanjose Rodriguez. Dictation was produced using gDecide dictation software, please excuse any grammatical, word or spelling errors. I agree with the above history, exam and plan. NWB RUE sling at all times other than for bathing multimodal pain regimen while inpatient and transition to non narcotic med ications as soon as tolerated will require serial follow up xrays to assess healing anticipate beginning PT around 4 weeks after injury to begin to work on ROM Juanjose Rodriguez MD
[2024-12-15 11:40] LABS: African American GFR (CKD) >90 (>60 ml/min/1.73 sqM); Anion Gap 16 mmol/L; Blood Urea Nitrogen 16 mg/dL (9-20); Calcium 9.5 mg/dL (8.4-10.2); Carbon Dioxide 19 mmol/L (22-30); Chloride 104 mmol/L (98-107); Glucose 92 mg/dL (74-99); Non-African American GFR(CKD) 83 (>60 ml/min/1.73 sqM); Potassium 3.8 mmol/L (3.5-5.1); Sodium 139 mmol/L (137-145)
[2024-12-15] MEDS: HYDROcodone/APAP 10-325MG 1 EACH TAB PO PRN (11:49)
--- NOTE | 2024-12-15 13:45 | P.CN ---
Psychiatric Consult - . Consult date: 12/15/24 Consult:: 12/15/24 13:38 IDENTIFYING DATA: This patient is a 84-year-old male, living with REASON FOR REFERRAL: Psychiatry was consulted for behavioral changes HISTORY OF PRESENT ILLNESS: The patient presented to the hospital with weakness and increased falls. Patient had also been experiencing increased paranoia and confusion. CT head revealed chronic appearing periventricular white matter ischemic changes with atrophy. 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 was the predominant historian, stating that patient has been exhibiting behavior changes for the past 5 years that has been worsening over the past 2 years. Patient does admit to increased forgetfulness, memory impairment with name forgetting. Patient's has had increased concerns to which she no longer allows patient to drive since this past July. Patient was alert and oriented to self, month and place, not oriented to location, day/date or year. states that patient has been exhibiting paranoia, not able to attend to his ADLs with very vivid visual hallucinations described as seeing people. Patient is able to acknowledge these visual hallucinations however he denied being agitated at nighttime to which states patient is up at night trying to get out and she is fearful of him taking his keys and driving off in the middle of the night. also admits to patient sometimes hearing people talk. feels as though patient is becoming too much for her to handle and she was encouraged to look into assisted living facilities if possible. At this time patient denies any suicidal or homicidal ideations, intent or plan. Patient denies any auditory, visual hallucinations and denies any paranoia or delusions. Patients admits to using no substances PAST PSYCHIATRIC HISTORY: Patient has no past psych history. Patient denies being on any psychiatric medications. Patient denies any previous psychiatric hospitalizations. Patient denies any psychiatric outpatient follow-up. Patient denies any history of suicide attempts in the past. PAST MEDICAL HISTORY: GERD/Reflux, Hyperlipidemia, Hypertension, Myocardial Infarction ([place]), Prostate Disorder. ALLERGIES: as per EMR. CHEMICAL DEPENDENCY HISTORY: as per HPI. FAMILY PSYCHIATRIC/SUBSTANCE USE HISTORY: Denies SOCIAL HISTORY: Patient is and has 5 children. He is retired MENTAL STATUS EXAM: General Appearance: Patient appears to be stated age is alert, pleasant, and cooperative. Patient appears to have fair hygiene and grooming wearing hospital gown with fair eye contact. Behavior: Patient is calmly lying in bed without any agitated behavior. Speech: Patient's speech is fluent and nonpressured. Mood/Affect: Patient reports their mood is "okay", affect is congruent, constricted Suicidality/Homicidality: Patient denies having any suicidal or homicidal ideation intent or plan. Perceptions: Patient denies any visual hallucinations and denies any auditory hallucinations however he has been experiencing AVH most recent yesterday Though content/process: There is no evidence of any delusional thought content and thought process is superficially linear . Memory and concentration: AOX1-2, not day/date, year, location Judgment and insight: Poor IMPRESSIONS: Major neurocognitive disorder PLAN: -At this time patient DOES NOT meet criteria for inpatient psychiatric admission. -Would recommend the following medication changes/additions: Start Seroquel 25 mg at bedtime for psychosis. Risk versus benefits was explained to both patient and family including increased risk of . Continue Zyprexa 5 mg IM twice daily as needed for acute safety concerns. Start donepezil 5 mg at bedtime for cognitive impairment -Will continue to follow along -Please contact with any questions.
[2024-12-15 15:04] LABS: Basophils # (A) 0.03 X 10*3/uL (0.00-0.10); Basophils % (A) 0.3 %; Eosinophils # (A) 0.04 X 10*3/uL (0.04-0.35); Eosinophils % (A) 0.5 %; HCT 45.9 % (39.6-50.0); HGB 14.9 g/dL (13.0-17.0); Lymphocytes % (A) 14.9 %; MCH 30.1 pg (27.0-32.0); MCHC 32.5 g/dL (32.0-37.0); MCV 92.7 FL (80.0-97.0); Mean Platelet Volume 11.3 FL (9.5-12.2); Monocytes # (A) 0.84 X 10*3/uL (0.20-1.00); Monocytes % (A) 9.6 %; NRBC Per 100 WBC 0 X 10*3/uL (0.00-0.01); Neutrophils # (A) 6.48 X 10*3/uL (1.80-7.70); Neutrophils % (A) 74.4 %; Platelet Count 149 X 10*3/uL (140-440); RBC 4.95 X 10*6/uL (4.40-5.60); RDW 13.5 % (11.5-14.5); WBC 8.72 X 10*3/uL (4.50-10.00)
--- NOTE | 2024-12-15 15:09 | P.PN ---
Subjective Progress Note Date: 12/15/24 The patient is an 84-year-old male who was seen in neurologic follow-up on December 15, 2024, in collaboration with Katie Hicks, via teleneurology. History is obtained from review of the chart, as well as the neurology consultation. The patient has reportedly been experiencing frequent falls and this is why he presented to the emergency department. The patient apparently has an outpatient neurologist for whom he has seen regarding frequent falls and confusion. The possibility of Parkinson's disease has reportedly been ruled out. The patient has had 2 brain MRIs both of which have been negative for acute events. EEG has been ordered for this admission. Objective - Vital Signs Vital signs: Vital Signs Temp 98.2 F 12/15/24 04:00 Pulse 96 12/15/24 07:27 Resp 20 12/15/24 07:27 BP 200/100 12/15/24 07:27 Pulse Ox 93 L 12/15/24 07:27 FiO2 Intake & Output 12/14/24 12/15/24 12/15/24 18:59 06:59 18:59 Weight 86.183 kg - Exam General: The patient is reclining in the bed. He is well-nourished, well- developed and in no acute distress. HEENT: Head is atraumatic, normocephalic. Fundus not visualized. There is no scleral icterus. Mucous membranes are moist. Extremities: Without edema Neurological examination Mental status: Patient is awake and alert. He is oriented to his name, date of , current month, hospital and city in which he is located. Patient is unable to report his age or the current year. Cranial nerves: 2-12 grossly intact, with the exception of diminished hearing bilaterally. - Labs CBC & Chem 7: 12/15/24 07:34 12/15/24 10:55 Labs: Abnormal Lab Results - Last 24 Hours (Table) 12/14/24 12/14/24 12/14/24 Range/Units 12:23 12:23 22:07 Lymphocytes # 0.85 L (0.90-5.00) 10*3/uL BUN 21 H (9-20) mg/dL Glucose 120 H (74-99) mg/dL Urine Protein Trace H (Negative) Urine Glucose (UA) 4+ H (Negative) Urine Ketones Trace H (Negative) Assessment and Plan Assessment: 1. Frequent falls: Patient is not compliant using cane or any assistance while walking even though he has been having falls. He had two MRI Brain which were negative for acute process in past per and was told he does not have Parkinson's disease and he failed improvement with Primidone or Sinemet trial. 2. History of right humerus fracture due to a fall 3. Probable dementia-B12 level is somewhat diminished at 293. Ammonia level is less than 9. Folate 8.6. TSH 1.4. 4. History of coronary artery status post stent 5. History of cardiac bypass Plan: 1. Orthostatic vitals have been ordered however not performed as of this time 2. Routine EEG for his episode of confusion. Currently is oriented X3. I doubt seizure. 3. Patient was counseled on using an assistance device with ambulation because of his recurrent falls. Recommend a walker. 4. Recommend patient to follow-up with his outpatient neurologist, Dr. Carroll as well as detailed neuropsych evaluation for memory testing, as well as testing for possible peripheral neuropathy which may interfere with the patient's ability to ambulate 5. PT and OT are consulted 6. Recommend B12 supplementation Will defer the rest of medical management to primary team and other specialist Time with Patient: Greater than 30 (40 minutes were spent caring for this patient today including, obtaining history, examining the patient, reviewing imaging, chart documentation, labs, placing orders and creating this note)
[2024-12-15 15:11] LABS: ALT 15 U/L (10-49); AST 39 U/L (14-35); Albumin 4.1 g/dL (3.8-4.9); Albumin/Globulin Ratio 1.86 Ratio (1.60-3.17); Alkaline Phosphatase 77 U/L (41-126); BUN/Creat Ratio 15.89 Ratio (12.00-20.00); Blood Urea Nitrogen 14.3 mg/dL (9.0-27.0); Carbon Dioxide 20.7 mmol/L (21.6-31.8); Chloride 105 mmol/L (96-109); Globulin 2.2 g/dL (1.6-3.3); Glucose 97 mg/dL (70-110); Potassium 4.2 mmol/L (3.5-5.5); Sodium 142 mmol/L (135-145); Total Bilirubin 0.9 mg/dL (0.3-1.2); Total Protein 6.3 g/dL (6.2-8.2)
[2024-12-15] MEDS: DONEPEZIL 5 MG TAB PO SCH (20:23)
[2024-12-15] MEDS: QUEtiapine 25 MG TAB PO SCH (20:23)
--- NOTE | 2024-12-16 08:01 | P.PN ---
Subjective Progress Note Date: 12/16/24 12/15/2024 consult this is an 84-year-old gentleman with frequent falls who presented to the emergency department on 12/14/2024 because of recent fall and altered mental status. He has a past medical history of essential tremor, multiple falls, coronary artery disease and cardiac bypass. Per patient he has had multiple falls over the last 2 months. Per chart review he is having these falls due to trying to ambulate quickly but sometimes has incontinence and slips and falls. Patient states he thinks he broke his right humerus a month ago from a fall. Per the patient was brought into the emergency department for a more recent fall within the last week and confusion by family. Today at the time of my exam the patient's only pain complaint was isolated to the right shoulder. 12/16/2024 progress: Patient has been transferred to the orthopedic floor. Patient was evaluated by psychiatry. At time of exam a sitter is present. Patient states the right shoulder pain has improved since yesterday. Objective - Vital Signs Vital signs: Vital Signs Temp 98.4 F 12/16/24 00:10 Pulse 79 12/16/24 00:10 Resp 16 12/16/24 00:10 BP 149/68 12/16/24 00:10 Pulse Ox 94 L 12/16/24 00:10 FiO2 Intake & Output 12/15/24 12/16/24 12/16/24 18:59 06:59 18:59 Intake Total 1080 Output Total 150 Balance 930 Weight 86.183 kg Intake: Oral 1080 Output: Urine 150 Other: Voiding Method Diaper Diaper Incontinent # Voids 4 - Exam Patient lying in bed. No acute distress. Head is normocephalic and atraumatic. No pain to palpation over the cervical spine or paraspinal muscles. Right upper extremity: Inspection: Ecchymosis over the bicep. Mild swelling. No obvious deformity. Palpation: Tenderness to palpation over the proximal right humerus. Nontender to palpation over clavicle, scapula, elbow, forearm, wrist, hand, or fingers. Motor: Patient has pain with attempts at abduction but deltoid contraction and is able to shrug shoulders. Patient is able to flex and extend at the elbow and wrist without difficulty that they state is due to prior essential tremor.. 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 Capillary refill under 2 seconds in all digits. Sensation: grossly intact to light touch. Bilateral lower extremity exam: Inspection: No obvious deformity. Palpation: No tenderness to pelvis, hips, knee, legs, ankles or knees. Range of motion: No pain with logroll. No pain with passive range of motion of the hip knee ankle or foot. Calves were soft to compression, negative Homans' sign. Vascular: Dorsalis pedis pulse 2+ bilaterally. Sensation: grossly intact to light touch throughout the bilateral lower extremities. - Labs CBC & Chem 7: 12/16/24 06:18 12/16/24 06:18 Labs: Abnormal Lab Results - Last 24 Hours (Table) 12/15/24 12/15/24 Range/Units 07:34 10:55 Carbon Dioxide 20.7 L 19 L (21.6-31.8) mmol/L Anion Gap 16.30 H (4.00-12.00) mmol/L AST 39 H (14-35) U/L Assessment and Plan Assessment: Frequent falls Closed right proximal humerus fracture minimally displaced Plan: Patient complaining of isolated right shoulder pain. X-rays were reviewed and show proximal right humerus fracture with minimal displacement. No acute surgical interventions are recommended at this time. We recommend treatment with conservative management with a sling, nonweightbearing of the right upper extremity, and follow-up as an outpatient for serial x-rays. Pain management per primary team. Case was discussed with Dr. Juanjose Rodriguez. Paper prescription for sling was placed in the patient's chart 12/16/2024 Dictation was produced using Twist dictation software, please excuse any grammatical, word or spelling errors. I agree with the above interval history, exam and plan. Juanjose Rodriguez MD
[2024-12-16 10:02] LABS: BUN/Creat Ratio 18.44 Ratio (12.00-20.00); Blood Urea Nitrogen 16.6 mg/dL (9.0-27.0); Carbon Dioxide 22.4 mmol/L (21.6-31.8); Chloride 102 mmol/L (96-109); Glucose 112 mg/dL (70-110); Potassium 3.8 mmol/L (3.5-5.5); Sodium 140 mmol/L (135-145)
[2024-12-16 10:04] LABS: Basophils # (A) 0.03 X 10*3/uL (0.00-0.10); Basophils % (A) 0.4 %; Eosinophils # (A) 0.14 X 10*3/uL (0.04-0.35); Eosinophils % (A) 1.8 %; HCT 48.2 % (39.6-50.0); HGB 15.4 g/dL (13.0-17.0); Lymphocytes # (A) 1.06 X 10*3/uL (0.90-5.00); Lymphocytes % (A) 13.7 %; MCH 29.8 pg (27.0-32.0); MCV 93.4 FL (80.0-97.0); Mean Platelet Volume 10.6 FL (9.5-12.2); Monocytes # (A) 0.92 X 10*3/uL (0.20-1.00); Monocytes % (A) 11.9 %; NRBC Per 100 WBC 0 X 10*3/uL (0.00-0.01); Neutrophils # (A) 5.58 X 10*3/uL (1.80-7.70); Neutrophils % (A) 71.9 %; Platelet Count 173 X 10*3/uL (140-440); RBC 5.16 X 10*6/uL (4.40-5.60); RDW 13.6 % (11.5-14.5); WBC 7.75 X 10*3/uL (4.50-10.00)
--- NOTE | 2024-12-16 16:25 | P.HPIM ---
History of Present Illness H&P Date: 12/14/24 Chief Complaint: Weakness 84-year-old male, history of hypertension, hyperlipidemia, CAD with CABG and catheterization with stent placement, GERD, who presents emergency department for weakness and frequent falls. Multiple falls over the last few weeks at home. Also was having increased intermittent somewhat confusion and paranoia. Family. He is alert and oriented x 4 but apparently has been acting more strangely at home and this has been a more progressive process. Unknown if this is related to possibly dementia or not. Is not on thinners. Did fall again today or overnight and is too weak to move. Broke his right humerus from a fall within the last week but on the fall last night no obvious injuries. Presents for further evaluation. Patient denies any acute complaints other than pain in the right shoulder. Blood work completed in ED reveals a WBC of 761 hemoglobin of 14.6 and platelet count 154, sodium 141 potassium 3.9, BUN/creatinine of 21/1.15 and blood glucose of 120 Chest x-ray reveals cardiomegaly without acute pulmonary process X-ray of the shoulder reveals acute comminuted minimally displaced fracture surgical neck proximal humerus CT of the brain is negative for any acute intracranial abnormality Review of Systems ROS unobtainable: due to mental status Past Medical History Past Medical History: GERD/Reflux, Hyperlipidemia, Hypertension, Myocardial Infarction ([place]), Prostate Disorder Additional Past Medical History / Comment(s): Refuses CPAP Last Myocardial Infarction Date:: 2006, History of Any Multi-Drug Resistant Organisms: None Reported Past Surgical History: Cholecystectomy, Coronary Bypass/CABG, Heart Catheterization With Stent Additional Past Surgical History / Comment(s): 2008 cabg 3x vessel Past Anesthesia/Blood Transfusion Reactions: No Reported Reaction Date of Last Stent Placement:: 2015 Past Psychological History: Anxiety Smoking Status: Never smoker Past Alcohol Use History: None Reported Past Drug Use History: None Reported - Past Family History Brother(s) History Unknown: Yes Additional Family Medical History / Comment(s): leukemia, lung Father History Unknown: Yes Family Medical History: Myocardial Infarction ([place]) Sister(s) History Unknown: Yes Family Medical History: Asthma Medications and Allergies Home Medications Medication Instructions Recorded Confirmed Type Acetaminophen/Diphenhydramine 2 tab PO HS 08/05/21 12/14/24 History [Tylenol PM 500-25mg] Aspirin EC [Ecotrin Low Dose] 81 mg PO HS 12/29/21 05/09/25 History Baclofen [Lioresal] 10 mg PO BID 08/05/21 12/14/24 History Dicyclomine [Bentyl] 10 mg PO BID 08/05/21 12/14/24 History Finasteride [Proscar] 5 mg PO DAILY 08/05/21 12/14/24 History Meloxicam [Mobic] 7.5 mg PO BID 08/05/21 12/14/24 History Nitroglycerin Sl Tabs [Nitrostat] 0.4 mg SUBLINGUAL Q5M PRN 08/05/21 12/14/24 History Pantoprazole [Protonix] 40 mg PO HS 08/05/21 12/14/24 History Rosuvastatin [Crestor] 10 mg PO DAILY 08/05/21 12/14/24 History Tamsulosin HCl [Flomax] 0.4 mg PO BID 08/05/21 12/14/24 History DULoxetine HCL [Cymbalta] 20 mg PO HS 10/12/23 12/14/24 History Empagliflozin [Jardiance] 10 mg PO DAILY 02/21/24 12/14/24 History Isosorbide Mononitrate ER [Imdur] 30 mg PO DAILY 02/21/24 12/14/24 History Propranolol HCl [Propranolol HCl 80 mg PO DAILY 12/14/24 12/14/24 History ER] Ranolazine [Ranexa] 500 mg PO HS 12/14/24 12/14/24 History Zinc 50mg With Vitamin D3 50mcg 1 tab PO DAILY 12/14/24 12/14/24 History hydrALAZINE HCL [Apresoline] 25 mg PO BID 12/14/24 12/14/24 History Allergies Allergy/AdvReac Type Severity Reaction Status Date / Time No Known Allergies Allergy Verified 12/14/24 13:23 Physical Exam Vitals: Vital Signs Temp Pulse Resp BP Pulse Ox 12/14/24 13:44 59 L 18 152/87 95 12/14/24 11:23 99.0 F 63 18 129/67 97 Intake and Output 12/13/24 12/14/24 12/14/24 22:59 06:59 14:59 Other: Weight 86.183 kg General: Appears in no acute distress. HEAD: Normal with no signs of head trauma. EYES: PERRLA, EOMI, conjunctiva normal, no discharge. Pupils are 3 mm and equal bilaterally. ENT: Hearing grossly intact, normal oropharynx. RESPIRATORY: Clear breath sounds bilaterally. No wheezes, rales, or rhonchi. C/V: Regular rate and rhythm. S1 and S2 auscultated, no edema, peripheral pulses 2+ and intact throughout ABD: Abd is soft, nontender, nondistended EXT: Normal range of motion, no obvious deformity. No midline cervical, thoracic, lumbar spine tenderness to palpation. SKIN: Bruising over the right shoulder. NEURO: Alert and oriented x 4. Reduced range of motion right shoulder secondary to right shoulder fracture. No other obvious focal deficits. Some mild weakness symmetrical bilateral lower extremity. Results CBC & Chem 7: 12/16/24 06:18 12/16/24 06:18 Labs: Abnormal Lab Results - Last 24 Hours (Table) 12/14/24 12/14/24 Range/Units 12:23 12:23 Lymphocytes # 0.85 L (0.90-5.00) 10*3/uL BUN 21 H (9-20) mg/dL Glucose 120 H (74-99) mg/dL Assessment and Plan Assessment: 1. Multiple falls/debility Recent proximal humeral fracture - Patient missed appointment with orthopedic surgery due to weakness and inability to leave home independently - We will consult orthopedic surgery - Consult PT/OT 2. Acute renal injury/dehydration; patient has been placed on IV fluids; monitor strict DARIELA's, daily weights, renal function electrolytes; avoid nephrotoxins and hypotension 4. Mental status change; dementia/behavioral disturbance versus other; psych consult in place - Neurology consulted; Frequent falls: Patient is not compliant using cane or any assistance while walking even though he has been having falls, he had episode of falls since he cannot make it to the bathroom and has urinary in continence as a result and then slip on urine. He had two MRI Brain which were negative for acute process in past per and was told he does not have Parkinson's disease and he failed improvement with Primidone or Sinemet trial. 5. Hypertension; hydralazine 25 mg twice daily; Imdur 30 mg daily; propranolol 80 mg daily 6. Diabetes mellitus type 2; Jardiance 10 mg daily 7. Hyperlipidemia; Crestor 10 mg daily 8. BPH; Proscar 5 mg daily; Flomax 0.4 mg twice daily 9. Coronary artery disease; continue home dose of Imdur 30 mg daily, Ranexa 500 mg nightly, propranolol 80 mg daily 10. Chronic back pain; continue with home dose of Cymbalta/baclofen DVT prophylaxis; SCDs CODE STATUS; full code
--- NOTE | 2024-12-16 16:29 | P.PN ---
Subjective Progress Note Date: 12/16/24 84-year-old male, history of hypertension, hyperlipidemia, CAD with CABG and catheterization with stent placement, GERD, who presents emergency department for weakness and frequent falls. Multiple falls over the last few weeks at home. Also was having increased intermittent somewhat confusion and paranoia. Family. He is alert and oriented x 4 but apparently has been acting more strangely at home and this has been a more progressive process. Unknown if this is related to possibly dementia or not. Is not on thinners. Did fall again today or overnight and is too weak to move. Broke his right humerus from a fall within the last week but on the fall last night no obvious injuries. Presents for further evaluation. Patient denies any acute complaints other than pain in the right shoulder. Blood work completed in ED reveals a WBC of 761 hemoglobin of 14.6 and platelet count 154, sodium 141 potassium 3.9, BUN/creatinine of 21/1.15 and blood glucose of 120 Chest x-ray reveals cardiomegaly without acute pulmonary process X-ray of the shoulder reveals acute comminuted minimally displaced fracture surgical neck proximal humerus CT of the brain is negative for any acute intracranial abnormality 12/16/2024 Patient is seen and evaluated in room at bedside; family is not present in the room; patient is awake and alert and cooperated Vital signs are reviewed and stable Lab review shows WBC 7.75, hemoglobin of 15.4 and platelet count of 173, sodium 140, potassium 3.8, BUNs/creatinine of 16.6/0.9 Patient has been evaluated by neurology; no further neurological workup is indicated -Orthopedic surgery has seen the patient; x-rays of the shoulder revealed proximal right humeral fracture with minimal displacement; no surgical intervention is recommended at this time; conservative management with a sling and patient is to be nonweightbearing on right upper extremity - Psych recommending patient to be placed on Seroquel 25 mg nightly for psychosis, Zyprexa 5 mg IM twice daily can be used as needed; patient has been placed on Aricept 5 mg daily Objective - Vital Signs Vital signs: Vital Signs Temp 98.4 F 12/16/24 00:10 Pulse 79 12/16/24 00:10 Resp 16 12/16/24 00:10 BP 149/68 12/16/24 00:10 Pulse Ox 94 L 12/16/24 00:10 FiO2 Intake & Output 12/15/24 12/16/24 12/16/24 18:59 06:59 18:59 Intake Total 1080 Output Total 150 Balance 930 Weight 86.183 kg Intake: Oral 1080 Output: Urine 150 Other: Voiding Method Diaper Diaper Incontinent # Voids 4 - Exam General: Appears in no acute distress. HEAD: Normal with no signs of head trauma. EYES: PERRLA, EOMI, conjunctiva normal, no discharge. Pupils are 3 mm and equal bilaterally. ENT: Hearing grossly intact, normal oropharynx. RESPIRATORY: Clear breath sounds bilaterally. No wheezes, rales, or rhonchi. C/V: Regular rate and rhythm. S1 and S2 auscultated, no edema, peripheral pulses 2+ and intact throughout ABD: Abd is soft, nontender, nondistended EXT: Normal range of motion, no obvious deformity. No midline cervical, thoracic, lumbar spine tenderness to palpation. SKIN: Bruising over the right shoulder. NEURO: Alert and oriented x 4. Reduced range of motion right shoulder secondary to right shoulder fracture. No other obvious focal deficits. Some mild weakness symmetrical bilateral lower extremity. - Labs CBC & Chem 7: 12/16/24 06:18 12/16/24 06:18 Labs: Abnormal Lab Results - Last 24 Hours (Table) 12/15/24 12/15/24 Range/Units 07:34 10:55 Carbon Dioxide 20.7 L 19 L (21.6-31.8) mmol/L Anion Gap 16.30 H (4.00-12.00) mmol/L AST 39 H (14-35) U/L Assessment and Plan Assessment: 1. Multiple falls/debility Recent proximal humeral fracture - Patient missed appointment with orthopedic surgery due to weakness and inability to leave home independently - We will consult orthopedic surgery - Consult PT/OT 2. Acute renal injury/dehydration; patient has been placed on IV fluids; monitor strict DARIELA's, daily weights, renal function electrolytes; avoid nep hrotoxins and hypotension 4. Mental status change; dementia/behavioral disturbance versus other; psych consult in place - Neurology consulted; Frequent falls: Patient is not compliant using cane or any assistance while walking even though he has been having falls, he had episode of falls since he cannot make it to the bathroom and has urinary incontinence as a result and then slip on urine. He had two MRI Brain which were negative for acute process in past per and was told he does not have Parkinson's disease and he failed improvement with Primidone or Sinemet trial. 5. Hypertension; hydralazine 25 mg twice daily; Imdur 30 mg daily; propranolol 80 mg daily 6. Diabetes mellitus type 2; Jardiance 10 mg daily 7. Hyperlipidemia; Crestor 10 mg daily 8. BPH; Proscar 5 mg daily; Flomax 0.4 mg twice daily 9. Coronary artery disease; continue home dose of Imdur 30 mg daily, Ranexa 500 mg nightly, propranolol 80 mg daily 10. Chronic back pain; continue with home dose of Cymbalta/baclofen DVT prophylaxis; SCDs CODE STATUS; full code
[2024-12-16] MEDS: ACETAMINOPHEN TAB 325 MG TAB PO PRN (21:02)
[2024-12-17 07:20] VITALS: RESP 18
[2024-12-17] MEDS ORDERED: NITROGLYCERIN SL TABS 0.4 MG TAB SUBLINGUAL PRN (09:16)
[2024-12-17] MEDS: TAMSULOSIN 0.4 MG CAP.ER.24H PO SCH (10:26)
[2024-12-17] MEDS: DAPAGLIFLOZIN PROPANEDIOL 5 MG TABLET PO SCH (10:27)
[2024-12-17] MEDS: ISOSORBIDE MONONITRATE ER 30 MG TAB.ER.24H PO SCH (10:27)
[2024-12-17] MEDS: ATORVASTATIN 20 MG TAB PO SCH (10:27)
[2024-12-17] MEDS: hydrALAZINE HCL 25 MG TAB PO SCH (10:27)
[2024-12-17] MEDS: PROPRANOLOL LA 80 MG CAP.SA.24H PO SCH (10:27)
[2024-12-17] MEDS: FINASTERIDE 5 MG TAB PO SCH (10:27)
[2024-12-17] MEDS: OLANZapine 10 MG VIAL IM PRN (12:46)
--- NOTE | 2024-12-17 13:12 | P.PN ---
Progress Note - Text Progress Note Date: 12/17/24 IDENTIFYING DATA: Patient is an 84-year-old male, living with REASON FOR CONSULT: Behavior changes INTERVAL HISTORY: Patient seen and evaluated. present at bedside. Patient continues to have paranoia per however patient denied any auditory or visual hallucinations. He has been intermittently agitated to which he states his is the trigger for this and he was given Zyprexa IM as needed for this. He was A&Ox1 to self only today. He continues to exhibit memory loss, poor sleep at night. He has reportedly been off his antidepressant for 2 days and this was restarted today. MENTAL STATUS EXAM: General Appearance: Patient appears to be stated age. Patient appears to have fair hygiene and grooming wearing hospital gown with poor eye contact. Behavior: Patient is intermittently agitated Speech: Fluent, nonpressured Mood/Affect: Mood is irritable and affect is constricted Suicidality/Homicidality: Patient denies any suicidal or homicidal ideations Perceptions: There are no perceptual abnormalities Though content/process: reported patient to still be paranoid, thought process otherwise is superficially linear Judgment and insight: Poor IMPRESSIONS: Major neurocognitive disorder PLAN: -At this time patient DOES NOT meet criteria for inpatient psychiatric admission. -Would recommend the following medication changes/additions: Increase Seroquel to 50 mg at bedtime for psychosis, continue donepezil 5 mg at bedtime for cognitive impairment, Zyprexa 5 mg IM twice daily as needed for acute safety concerns. Resume Cymbalta 20 mg at bedtime for mood -Communicated plan to patient's nurse -Will continue to follow along -Please contact with any questions.
--- NOTE | 2024-12-17 16:18 | EEG ---
ELECTROENCEPHALOGRAM REPORT PREAMBLE: This is an 84-year-old male, presented with altered mental status, rule out seizures. CURRENT MEDICATIONS: 1. Aricept. 2. Baldwin. 3. Zyprexa. 4. Seroquel. EEG FINDINGS: This is a 21-channel digital EEG recorded with video component, utilizing 10/20 international system with referential and bipolar montages. Background consists of a predominant mixed frequencies of 7 hertz theta with some 8 hertz alpha activity in bihemispheric region. Intermittent 2-3 hertz generalized delta slowing was also seen. Background is slightly reactive to eye opening and closing. Hyperventilation and photic stimulation were not done. Different stages of sleep were not seen. No focal or generalized epileptiform activity was seen. IMPRESSION: This is an abnormal EEG due to background slowing of vexy-sy-dduwsdrc degree. This is suggestive of generalized cerebral dysfunction as can be seen with toxic metabolic encephalopathy or related to diffuse structural brain abnormality. Clinical correlation is recommended. No epileptiform activity was seen. MMODL / IJN: [id number] /
[2024-12-17] MEDS: ASPIRIN 81 MG PO SCH (20:32)
[2024-12-17] MEDS: QUEtiapine 50 MG TAB PO SCH (20:32)
[2024-12-17] MEDS: BACLOFEN 10 MG TAB PO SCH (20:32)
[2024-12-17] MEDS: RANOLAZINE 500 MG TAB.ER.12H PO SCH (20:32)
[2024-12-17] MEDS: DICYCLOMINE 20 MG TAB PO SCH (20:32)
[2024-12-17] MEDS: PANTOPRAZOLE 40 MG TABLET PO SCH (20:32)
[2024-12-17] MEDS: MELATONIN 3 MG TABLET PO SCH (20:32)
[2024-12-17] MEDS: DULoxetine HCL 20 MG CAPSULE.DR PO SCH (20:32)
[2024-12-17] MEDS: MELOXICAM 7.5 MG TAB PO SCH (20:33)
[2024-12-17] MEDS: ACETAMINOPHEN TAB 500 MG TAB PO SCH (20:33)
--- NOTE | 2024-12-18 06:38 | P.PN ---
Subjective Progress Note Date: 12/17/24 84-year-old male, history of hypertension, hyperlipidemia, CAD with CABG and catheterization with stent placement, GERD, who presents emergency department for weakness and frequent falls. Multiple falls over the last few weeks at home. Also was having increased intermittent somewhat confusion and paranoia. Family. He is alert and oriented x 4 but apparently has been acting more strangely at home and this has been a more progressive process. Unknown if this is related to possibly dementia or not. Is not on thinners. Did fall again today or overnight and is too weak to move. Broke his right humerus from a fall within the last week but on the fall last night no obvious injuries. Presents f or further evaluation. Patient denies any acute complaints other than pain in the right shoulder. Blood work completed in ED reveals a WBC of 761 hemoglobin of 14.6 and platelet count 154, sodium 141 potassium 3.9, BUN/creatinine of 21/1.15 and blood glucose of 120 Chest x-ray reveals cardiomegaly without acute pulmonary process X-ray of the shoulder reveals acute comminuted minimally displaced fracture surgical neck proximal humerus CT of the brain is negative for any acute intracranial abnormality 12/16/2024 Patient is seen and evaluated in room at bedside; family is not present in the room; patient is awake and alert and cooperated Vital signs are reviewed and stable Lab review shows WBC 7.75, hemoglobin of 15.4 and platelet count of 173, sodium 140, potassium 3.8, BUNs/creatinine of 16.6/0.9 Patient has been evaluated by neurology; no further neurological workup is indicated -Orthopedic surgery has seen the patient; x-rays of the shoulder revealed proximal right humeral fracture with minimal displacement; no surgical intervention is recommended at this time; conservative management with a sling and patient is to be nonweightbearing on right upper extremity - Psych recommending patient to be placed on Seroquel 25 mg nightly for psychosis, Zyprexa 5 mg IM twice daily can be used as needed; patient has been placed on Aricept 5 mg daily 12/17/2024 Patient is seen in follow-up today with at the bedside continues to be pleasantly confused with staff although becomes more angry and verbally abusive with family. Awaiting to see psychiatry with orthopedics also evaluating with no plans of surgical intervention recommending sling although patient is noncompliant with. Awaiting PT/OT therapy evaluation and possible ECF for continued strength and mobility. Patient is afebrile with no reported chest pain or shortness of breath. Patient has been tolerating diet with no reported nausea or vomiting. review of systems: Constitutional: No reports of fatigue, fever, or chills Cardiovascular: No reports of chest pain or palpitations Respiratory: No reports of shortness of breath or cough GI: No reports of nausea, vomiting, or diarrhea : No reports of dysuria or retention Neurovascular: reports of weakness or numbness All medications have been reviewed Physical exam: Gen: This is a 84-year-old male who is awake, alert and oriented x 1, well- developed, elderly appearing HEENT: Head is atraumatic, normocephalic. Pupils equal, round. Sclerae is anicteric. NECK: Supple. No JVD. No lymphadenopathy. No thyromegaly. LUNGS: Clear to auscultation. No wheezes or rhonchi. No intercostal retractions. HEART: Regular rate and rhythm. No murmur. ABDOMEN: Soft. Bowel sounds are present. No masses. No tenderness. EXTREMITIES: No pedal edema. No calf tenderness. NEUROLOGICAL: Patient is awake, alert and oriented x 12. Cranial nerves 2 through 12 are grossly intact. Diffusely weak Assessment: -Multiple falls/debility with recent proximal humeral fracture due to the fall, continue conservative management with no plans of surgical intervention at this time -Acute renal injury/dehydration; improving -Mental status change; dementia/behavioral disturbance, likely secondary to worsening dementia -Hypertension -Diabetes mellitus type 2 -Hyperlipidemia -BPH - History of coronary artery disease -Chronic back pain GI prophylaxis DVT prophylaxis; SCDs CODE STATUS; full code Plan: Patient was admitted with orthopedics evaluating with no plans of surgical intervention at this time recommending a sling although patient continues to be noncompliant and take off frequently Recommend PT/OT therapy evaluation as plan will be to go to ECF for strength and mobility Psychiatry consult placed and appreciate input and recommendations Follow-up on repeat labs and replace electrolytes per protocol at bedside is concerned about overall wellbeing and becoming more aggressive at home, will consult case management/social work regarding discharge planning and resources Due to multiple complex medical issues, overall prognosis is guarded The impression and plan of care has been dictated by Kiera Skinner, Nurse Pr actitioner as directed. Dr. Michael MD I have performed a history and examination and MDM of this patient, discussed the same with the dictator, and agree with the dictator's assessment and plan as written ,documented as a scribe. Based on total visit time, I have performed more than 50% of the visit. Objective - Vital Signs Vital signs: Vital Signs Temp 98.3 F 12/17/24 07:20 Pulse 112 H 12/17/24 07:20 Resp 18 12/17/24 07:20 BP 191/106 12/17/24 07:20 Pulse Ox 94 L 12/17/24 07:20 FiO2 Intake & Output 12/16/24 12/17/24 12/17/24 18:59 06:59 18:59 Intake Total 1274 120 Output Total 100 Balance 1174 120 Intake: Oral 1274 120 Output: Urine 100 Other: Voiding Method Diaper Urinal Diaper # Voids 2 4 - Labs CBC & Chem 7: 12/16/24 06:18 12/16/24 06:18 Labs: Abnormal Lab Results - Last 24 Hours (Table) 12/16/24 Range/Units 06:18 Anion Gap 15.60 H (4.00-12.00) mmol/L Glucose 112 H (70-110) mg/dL
[2024-12-18] MEDS: VITAMIN D3 PO SCH (08:38)
[2024-12-18] MEDS: ZINC PO SCH (08:38)
--- NOTE | 2024-12-18 14:39 | P.DS ---
Providers Date of admission: 12/14/24 14:45 Expected date of discharge: 12/18/24 Attending physician: Stu Sultana MD Consults: 12/14/24 14:42 Consult Physician Routine Consulting Provider: Psychiatry - M[facility] Psychiatry Consult Reason/Comments: behavioral changes Do you want consulting provider notified?: Yes Consult Physician Routine Consulting Provider: Juanjose Rodriguez Consult Reason/Comments: Right proximal humerus fracture. Had outpatient appointment with Michael Do you want consulting provider notified?: Yes Consult Physician Routine Consulting Provider: Shawn Penny Consult Reason/Comments: behavioral changes Do you want consulting provider notified?: Yes Primary care physician: Darian Benavides [facility] Hospital Course: Final diagnosis -Multiple falls/debility with recent proximal humeral fracture due to the fall, continue conservative management with no plans of surgical intervention at this time -Acute renal injury/dehydration; improving -Mental status change; dementia/behavioral disturbance, likely secondary to worsening dementia -Hypertension -Diabetes mellitus type 2 -Hyperlipidemia -BPH - History of coronary artery disease -Chronic back pain GI prophylaxis DVT prophylaxis; SCDs CODE STATUS; full code Discharge disposition Patient is being discharged in a stable condition with guarded prognosis to [facility]. Patient will follow-up with Dr. Benavides in the outpatient setting upon discharge. Patient is to continue with current medications as prescribed below. Recommend continued sling of the right upper extremity and outpatient follow-up with orthopedics. Total time taken is greater than 35 minutes. Hospital course This is a 84-year-old male who was recently admitted with increased agitation and falls and generalized weakness with a noted recent right proximal humeral fracture and was evaluated by orthopedics. No plans of surgical intervention recommending conservative management and will use a sling. Patient does have significant history of dementia that appears to be worsening and has difficulty with the sling and recommend reinforcing frequently also with frequent reorientation. Patient with significant weakness evaluated by physical therapy and is recommending rehab. Patient with a mildly elevated creatinine of 1.15 on admission has improved and is currently 0.9. Patient did have history of BPH and did require straight catheterization although patient had not been taking medications for over 2 days and Flomax was resumed. Patient has been compliant with medicines and recommend to monitor for retention and use straight cath if necessary as there is a high risk that patient will attempt to remove an indwelling Earl catheter. Patient was evaluated by psychiatry recommending Zyprexa IM twice daily as needed with frequent reorientation and Seroquel at night. Patient is medically stable and will be going to [facility]. Please refer to other consultation notes for further HPI. Currently no reports of chest pain, shortness of breath, or palpitations. Patient is afebrile. No reports of nausea or vomiting and patient is tolerating diet. Patient will be going to [facility] today. Overall guarded prognosis Physical exam: Gen: This is a 84-year-old male who is awake, alert and oriented x 1-2, baseline, well-developed, elderly appearing HEENT: Head is atraumatic, normocephalic. Pupils equal, round. Sclerae is anicteric. NECK: Supple. No JVD. No lymphadenopathy. No thyromegaly. LUNGS: Diminished breath sounds bilaterally otherwise clear to auscultation. No wheezes or rhonchi. No intercostal retractions. HEART: S1, S2 are muffled ABDOMEN: Soft. Bowel sounds are present. No masses. No tenderness. EXTREMITIES: No pedal edema. No calf tenderness. Multiple bruises noted of upper and lower extremities due to recurrent falls and also significant right upper extremity bruising into the armpit secondary to fall with humeral fracture, positive pulses noted in the right upper extremity and cap refill less than 3 NEUROLOGICAL: Patient is awake, alert and oriented x 1-2. Cranial nerves 2 through 12 are grossly intact. Diffusely weak Please refer to medication reconciliation sheet for a list of medications. The impression and plan of care has been dictated by Kiera Skinner, Nurse Practitioner as directed. Dr. Michael MD I have performed a history and examination and MDM of this patient, discussed the same with the dictator, and agree with the dictator's assessment and plan as written ,documented as a scribe. Based on total visit time, I have performed more than 50% of the visit. Patient Condition at Discharge: Stable Plan - Discharge Summary Discharge Rx Participant: No New Discharge Prescriptions: New Acetaminophen Tab [Tylenol] 650 mg PO Q6HR PRN tab PRN Reason: Mild Pain Or Fever > 100.5 Donepezil [Aricept] 5 mg PO HS tab Melatonin 6 mg PO HS tab HYDROcodone/APAP 10-325MG [Gunter 10-325] 1 each PO Q4HR PRN #4 tab PRN Reason: Moderate To Severe Pain (4-10) QUEtiapine [SEROquel] 50 mg PO HS tab Continue Baclofen [Lioresal] 10 mg PO BID Acetaminophen/Diphenhydramine [Tylenol PM 500-25mg] 2 tab PO HS Rosuvastatin [Crestor] 10 mg PO DAILY Zinc 50mg With Vitamin D3 50mcg 1 tab PO DAILY hydrALAZINE HCL [Apresoline] 25 mg PO BID Finasteride [Proscar] 5 mg PO DAILY Nitroglycerin Sl Tabs [Nitrostat] 0.4 mg SUBLINGUAL Q5M PRN PRN Reason: Chest Pain Meloxicam [Mobic] 7.5 mg PO BID Tamsulosin HCl [Flomax] 0.4 mg PO BID Pantoprazole [Protonix] 40 mg PO HS Aspirin EC [Ecotrin Low Dose] 81 mg PO HS Dicyclomine [Bentyl] 10 mg PO BID DULoxetine HCL [Cymbalta] 20 mg PO HS Empagliflozin [Jardiance] 10 mg PO DAILY Isosorbide Mononitrate ER [Imdur] 30 mg PO DAILY Propranolol HCl [Propranolol HCl ER] 80 mg PO DAILY Ranolazine [Ranexa] 500 mg PO HS Discharge Medication List Acetaminophen/Diphenhydramine [Tylenol PM 500-25mg] 2 tab PO HS 08/05/21 [History] Aspirin EC [Ecotrin Low Dose] 81 mg PO HS 08/05/21 [History] Baclofen [Lioresal] 10 mg PO BID 08/05/21 [History] Dicyclomine [Bentyl] 10 mg PO BID 08/05/21 [History] Finasteride [Proscar] 5 mg PO DAILY 08/05/21 [History] Meloxicam [Mobic] 7.5 mg PO BID 08/05/21 [History] Nitroglycerin Sl Tabs [Nitrostat] 0.4 mg SUBLINGUAL Q5M PRN 08/05/21 [History] Pantoprazole [Protonix] 40 mg PO HS 08/05/21 [History] Rosuvastatin [Crestor] 10 mg PO DAILY 08/05/21 [History] Tamsulosin HCl [Flomax] 0.4 mg PO BID 08/05/21 [History] DULoxetine HCL [Cymbalta] 20 mg PO HS 10/12/23 [History] Empagliflozin [Jardiance] 10 mg PO DAILY 02/21/24 [History] Isosorbide Mononitrate ER [Imdur] 30 mg PO DAILY 02/21/24 [History] Propranolol HCl [Propranolol HCl ER] 80 mg PO DAILY 12/14/24 [History] Ranolazine [Ranexa] 500 mg PO HS 12/14/24 [History] Zinc 50mg With Vitamin D3 50mcg 1 tab PO DAILY 12/14/24 [History] hydrALAZINE HCL [Apresoline] 25 mg PO BID 12/14/24 [History] Acetaminophen Tab [Tylenol] 650 mg PO Q6HR PRN tab 12/18/24 [Rx] Donepezil [Aricept] 5 mg PO HS tab 12/18/24 [Rx] HYDROcodone/APAP 10-325MG [Gunter 10-325] 1 each PO Q4HR PRN #4 tab 12/18/24 [Rx] Melatonin 6 mg PO HS tab 12/18/24 [Rx] QUEtiapine [SEROquel] 50 mg PO HS tab 12/18/24 [Rx] Follow up Appointment(s)/Referral(s): Juanjose Rodriguez MD [STAFF PHYSICIAN] - 1 Week Darian Benavides MD [Primary Care Provider] - 1-[address] [facility], [NON-STAFF] - As Needed Activity/Diet/Wound Care/Special Instructions: Patient is going to [facility]. Activity as tolerated Recommend follow-up with primary care provider Sling for right upper extremity. Nonweightbearing of right upper extremity. Follow-up with orthopedics outpatient Patient requiring second straight cath for 500ml at 1350, please monitor for retention. Flomax has been resumed Continue heart healthy diet Psychiatry evaluated the patient recommending IM Zyprexa 5 mg twice daily as needed Discharge/Stand Alone Forms: Adult Foster Shelter List, Assisted Living Facilities, Community Resources Discharge Disposition: TRANSFER TO SNF/ECF
[2024-12-18 14:48] VITALS: BP 136/83; PULSE 60; TEMP 97.8
== END 2024-12-18 17:44 | DRG 92 ==
LOC: EC 11:22 → 4SSUR 14:44 → OBSVTOIN 14:45 → 4SSUR 16:03
PROVIDERS: ADMIT Internal Medicine; ATTEND Internal Medicine
PROC: 4A10X4Z Monitoring of Central Nervous Electrical Activity, External Approach (ICD-10-PCS; principal; 2024-12-17)
DX: R29.6 Repeated falls (principal); F03.918 Unspecified dementia, unspecified severity, with other behavioral disturbance; N17.9 Acute kidney failure, unspecified; E11.9 Type 2 diabetes mellitus without complications; I10 Essential (primary) hypertension; S40.011A Contusion of right shoulder, initial encounter; Z11.52 Encounter for screening for COVID-19; E78.5 Hyperlipidemia, unspecified; E86.0 Dehydration; G25.0 Essential tremor; G89.29 Other chronic pain; S42.201D Unspecified fracture of upper end of right humerus, subsequent encounter for fracture with routine healing; I25.10 Atherosclerotic heart disease of native coronary artery without angina pectoris; M54.9 Dorsalgia, unspecified; I25.2 Old myocardial infarction; N40.0 Benign prostatic hyperplasia without lower urinary tract symptoms; R04.0 Epistaxis; R32 Unspecified urinary incontinence; W01.198A Fall on same level from slipping, tripping and stumbling with subsequent striking against other object, initial encounter; F41.9 Anxiety disorder, unspecified; Z79.1 Long term (current) use of non-steroidal anti-inflammatories (NSAID); Z79.84 Long term (current) use of oral hypoglycemic drugs; Z79.899 Other long term (current) drug therapy; Z82.49 Family history of ischemic heart disease and other diseases of the circulatory system; Z91.81 History of falling; Z95.1 Presence of aortocoronary bypass graft; Z95.5 Presence of coronary angioplasty implant and graft; Y92.099 Unspecified place in other non-institutional residence as the place of occurrence of the external cause; Z90.49 Acquired absence of other specified parts of digestive tract
CPT/HCPCS: 36415; 70450; 71046; 80048; 80053; 81003; 82140; 82607; 82746; 83605; 83735; 84443; 85025; 85610; 85730; 87636; 93005; 95816; 96361; 96374; 96376; 99285